=== PATIENT | female | born 1955 | race Caucasian/White ===

== ENCOUNTER → 2016-09-30 16:19 | Outpatient (CLI) | payer BC ==
[2012-07-20 10:40] VITALS: BMI 36.1
== END | disposition home or self-care (01) ==
LOC: D.MAMMO 08:30
DX: Z12.31 Encounter for screening mammogram for malignant neoplasm of breast (principal)

== ENCOUNTER 2017-02-05 15:46 | Emergency (ER) | payer BC ==
[2012-07-20 10:40] VITALS: BMI 36.1
== END 2017-02-05 18:42 | disposition home or self-care (01) ==
LOC: D.ER 15:46
DX: S70.01XA Contusion of right hip, initial encounter (principal); W01.0XXA Fall on same level from slipping, tripping and stumbling without subsequent striking against object, initial encounter; Y93.89 Activity, other specified; Y92.019 Unspecified place in single-family (private) house as the place of occurrence of the external cause; F17.200 Nicotine dependence, unspecified, uncomplicated

== ENCOUNTER 2017-02-14 08:35 | Emergency (ER) | payer BC ==
[2012-07-20 10:40] VITALS: BMI 36.1
== END 2017-02-14 10:35 | disposition home or self-care (01) ==
LOC: D.ER 08:35
DX: S90.122A Contusion of left lesser toe(s) without damage to nail, initial encounter (principal); W22.8XXA Striking against or struck by other objects, initial encounter; Y93.89 Activity, other specified; Y92.019 Unspecified place in single-family (private) house as the place of occurrence of the external cause; F17.200 Nicotine dependence, unspecified, uncomplicated

== ENCOUNTER → 2017-05-17 09:31 | Outpatient (CLI) | payer BC ==
[2012-07-20 10:40] VITALS: BMI 36.1
[~2017-05-17 09:31] MED LIST: ASPIRIN EC81 M1 PO; CENTRUM SILVER1 EAC3 PO; DURICEF500 MG PO; PERCOCET 5-3251 TAB PO
[2017-05-19 08:35] VITALS: BMI 32.3
== END | disposition home or self-care (01) ==
LOC: D.MRI 09:30
DX: M25.561 Pain in right knee (principal)

== ENCOUNTER 2017-05-19 07:21 | Day surgery (SDC) | payer BC ==
[~2017-05-19] VITALS: Ht 162.6 cm; Wt 85.3 kg
[~2017-05-19 07:21] MED LIST changes: -CENTRUM SILVER1 EAC3 PO; -DURICEF500 MG PO; -PERCOCET 5-3251 TAB PO
[2017-05-19 08:24] LABS: HEMATOCRIT 40.9 % (36.0-48.0); HEMOGLOBIN 13.8 g/dL (12-16); MCH 33.6 pg (26.0-34.0); MCHC 33.7 g/dL (31.0-37.0); MCV 99.5 fL (80.0-100.0); MEAN PLATELET VOLUME 9.9 fL (7.4-10.4); RBC 4.11 10x6/uL (4.00-5.40); RDW 13.9 % (11.5-14.5); WBC 5.4 10x3/uL (4.8-10.8)
[2017-05-19 08:35] VITALS: BP 147/73; Ht 162.6 cm; Wt 85.3 kg
[2017-05-19] MEDS ORDERED: CENTRUM SILVER1 EAC3 PO (09:02)
[2017-05-19] MEDS ORDERED: DURICEF500 MG PO (14:12)
[2017-05-19] MEDS ORDERED: PERCOCET 5-3251 TAB PO (14:12)
--- NOTE | 2017-05-19 15:10 | NUR ---
FULL LIQUID TRAY PROVIDED W/COFFEE
--- NOTE | 2017-05-19 16:05 | NUR ---
DC TEACHING COMPLETE PT DRESSED W/HUSBANDS ASSIT PT INTO WC ESCORTED OUT BY TIMMY LAND RN WITH DRIVING.
--- NOTE | 2017-05-19 16:05 | NUR ---
PIV DC W/CATHETER TIP INTACT TIN WELL
--- NOTE | 2017-05-22 08:58 | OP ---
PATIENT NAME: LES GREEN MEDICAL RECORD: [id number] :55 LOCATION:[facility] ADMISSION DATE: SURGEON: PABLITO LOCKETT DO DATE OF OPERATION: 05/19/2017 PROCEDURES PERFORMED: Right knee arthroscopy with partial lateral meniscectomy in the lateral side of a quad tendon repair. PREOPERATIVE DIAGNOSES: Right knee pain with an extensor lag as well as a right lateral meniscal tear. INDICATIONS: Ms. Green is a 61-year-old female that had an MRI prior and had some knee pain until a few weeks ago when she suffered an injury where she had a slip and fell backwards on to her leg. She did have a lot of knee pain at that time; however, with activities of life and she continued to walk on her knee and use it. She did some exercise and continued to have recurrent knee pain with weightbearing and with bending her knee at the superior and lateral side of her patella until she got to the point where she could not extend fully without any pain. She was seen in the office and seemed she could perform a straight leg raise; however, when attempting to do it, her knee would flex approximately 20 degrees and she had a tearing pain at the superior lateral portion of her patella, this is where she points to. MRI was done and seemed that she had a lateral meniscal tear; however, a quad tendon tear was not seen. At the patient's behest and due to the fact that we are going to trim out her lateral meniscus. We told her that we would possibly fix her quad tendon if we saw that it was torn. She consented to this in the office and she was set up for surgery today. SURGEON: Pablito Lockett DO. ASSISTED BY: PANKAJ Leger. DESCRIPTION OF PROCEDURE: The patient was taken to the operative suite, placed in supine position and she was given general anesthetic and 2 g of Ancef. A timeout was performed indicating the correct procedure, site, side and patient. The lateral and medial portals were injected with 0.25% Marcaine with epinephrine, 7 mL total between the 2. An 11-blade scalpel was used to enter the lateral portal and the knee was entered. 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 The medial gutter was then viewed and no fragments were seen. The medial compartment was inspected. A medial portal was established and medial meniscus was probed, did not seem to have any tears or instability. The ACL was then probed, did not seem to have any instability issues either, it is very stable. The lateral compartment was then entered and seemed to have a meniscal tear in the posterior horn of the lateral meniscus and that was put out with a straight biter and a shaver. The lateral gutter was then viewed as well and no loose bodies were seen there. We then re-entered the suprapatellar pouch and found the lateral side of the patella. There was no retinaculum connecting the patella to the quad compared to the medial side and decision was made to open. At that time, the scope was withdrawn and opened the incision in the mid patella anteriorly and careful dissection was made down to the quad tendon itself, which was seen to be very thin compared to the medial side and easily probed through. This was done and the tear was completed the tendon that had been torn, was excised and a FiberTape suture was used to make a Krackow stitch in the torn portion of the tendon up the medial side first and across and lateral side down, OPERATIVE REPORT [id number] LES GREEN leaving 2 tails out in the middle of the tear. The patella was then cleared off just above the contral surface. First, a drill then a tap was used to make a aerial applicator pilot hole for the PushLock anchor. The 2 limbs of the FiberTape were then pushed and put into the PushLock and the PushLock was put into the patella and then cinched down. The tendon was advanced very nicely and the suture tails of the FiberTape were cut. The additional sutures were used then to oversew the remainder of the quad tendon over the patella on that lateral side and then the defect as well was oversewn with that suture Then, the synovium over the knee was closed with 0 Vicryl and the skin with 2-0 Vicryl in inverted interrupted fashion and the skin was closed with ZipLine. The portal sites for the knee scope were closed with simple interrupted sutures. Steri-Strips were placed over the portals. Adaptic, 4 x 4s, ABD, Webril, Canelo wrap and then MARJORIE hose were placed up to the knee. The patient was placed in a knee immobilizer in extension, was awakened in a stable condition and taken to recovery room. Blood loss was minimal. TRANSINT:[id number] Voice Confirmation ID: [id number] DOCUMENT ID: [id number] PABLITO LOCKETT DO at 0858 CC: [id number] DICTATION DATE: 05/19/17 142 [employer] CLERK: 05/19/17 1826 [facility] 05/19/17 [facility] [address] [place] [id number]
== END 2017-05-19 16:05 | disposition home or self-care (01) ==
LOC: D.OPS 07:21 → D.PAN 08:30 → D.OPS 08:30
PROVIDERS: Anesthesiology
DX: S83.281A Other tear of lateral meniscus, current injury, right knee, initial encounter (principal); M25.561 Pain in right knee; F17.200 Nicotine dependence, unspecified, uncomplicated; Z01.812 Encounter for preprocedural laboratory examination

== ENCOUNTER 2017-07-02 16:58 | Emergency (ER) | payer BC ==
[2017-05-19 08:35] VITALS: BMI 32.3
[~2017-07-02 16:58] MED LIST changes: +CENTRUM SILVER1 EAC3 PO; +DURICEF500 MG PO; +PERCOCET 5-3251 TAB PO
== END 2017-07-02 19:14 | disposition home or self-care (01) ==
LOC: D.ER 16:58
DX: M25.461 Effusion, right knee (principal); S83.91XA Sprain of unspecified site of right knee, initial encounter; X58.XXXA Exposure to other specified factors, initial encounter; Y93.B9 Activity, other involving muscle strengthening exercises; Y92.029 Unspecified place in mobile home as the place of occurrence of the external cause; F17.200 Nicotine dependence, unspecified, uncomplicated

== ENCOUNTER → 2017-09-08 07:56 | Outpatient (CLI) | payer BC ==
[2017-05-19 08:35] VITALS: BMI 32.3
== END | disposition home or self-care (01) ==
LOC: D.OPS 07:56 → D.RAD 09:00
DX: M16.11 Unilateral primary osteoarthritis, right hip (principal)

== ENCOUNTER → 2017-10-24 17:29 | Outpatient (CLI) | payer BC ==
[2017-05-19 08:35] VITALS: BMI 32.3
== END | disposition home or self-care (01) ==
LOC: D.MAMMO 13:45
DX: Z12.31 Encounter for screening mammogram for malignant neoplasm of breast (principal)

== ENCOUNTER → 2017-10-27 10:18 | Outpatient (CLI) | payer BC ==
[2017-05-19 08:35] VITALS: BMI 32.3
== END | disposition home or self-care (01) ==
LOC: D.OPS 10:18 → D.SP 11:00 → D.OPS 11:00
DX: M16.11 Unilateral primary osteoarthritis, right hip (principal); Z01.812 Encounter for preprocedural laboratory examination

== ENCOUNTER 2017-10-30 09:02 | Outpatient (CLI) | payer BC ==
[2017-05-19 08:35] VITALS: BMI 32.3
--- NOTE | ~2017-10-30 | HEMODYNAMI ---
PATIENT:LES BRAGG MEDICAL RECORD: [id number] : 55 [id number] AD[facility]ION DATE: 10/30/17 Generatedon:10/30/201716:52 Patient name: LES BRAGG Patient #: [id number] SSN: : 1955 Date of study: 10/30/2017 Page: Of Hemodynamic Procedure Report Patient Data Patient Demographics Procedure consent was obtained First Name: LES Gender: Female Last Name: MAHSA : 1955 [facility] Initial: BRISA Age: 61 year(s) Patient #: [id number] Race: Unknown Additional ID: [id number] Contact details Address: [address] [place] [address] State: [place] City: [facility] Zip code: [address] Past Medical History Allergies Allergen Reaction Date Comments Reported Other allergy 10/30/2017 PCN, IODINE, DARVON,DEMEROL, CODEINE,SULFA, ZPAK Admission Admission Data Admission Date: 10/30/2017 Admission Time: 9:02 Lab Results Lab Result Date: 10/30/2017 Lab Result Time: 0:00 Biochemistry Name Units Result Min Max BUN mg/dl 14 --(--*-)-- 7 18 Creatinine mg/dl 0.9 --(-*--)-- 0.6 1.3 CBC Name Units Result Min Max Hemoglobin g/dl 13.6 --(*---)-- 13.5 17.5 Procedure Procedure Types Cath Procedure Diagnostic Procedure LHC LHC w/Coronaries Procedure Description Procedure Date Procedure Date: 10/30/2017 Procedure Start Time: 16:42 Procedure End Time: 16:51 Procedure Staff Name Function Emi Crowe RT Scrub Chele Lara RN Program Project Analyst Jo-Ann Cervantes RT Monitor Mary Workman RN Nurse Malvin Hong MD Performing Physician Procedure Data Cath Procedure Fluoroscopy Diagnostic fluoroscopy Total fluoroscopy Time: 1 time: 1 min min Diagnostic fluoroscopy Total fluoroscopy dose: 227 dose: 227 mGy mGy Contrast Material Contrast Material Type Amount (ml) Isovue 300 38 Entry Location Entry Primary Successful Side Size Upsize Upsize Entry Closure Davis ccessful Closure Location (Fr) 1 (Fr) 2 (Fr) Remarks Device Remarks Radial Right 6 Fr Mechanical artery Short Compression Estimated blood loss: 5 ml Diagnostic catheters Device Type Used For End Catheter Placement DIAGNOSTIC [place] 110cm 5 Procedure Fr catheter ([id number]) Procedure Complications No complications Procedure Medications Medication Administration Route Dosage 0.9% NaCl I.V. 100 ml/hr Oxygen NC 2 l/min Heparin Flush Bag added to field 2 bags (1000units/500ml NS) Lidocaine 2% added to field 20 Radial Cocktail added to field 1 syringe (Verapomil 2mg/Nitro 400mcg/Heparin 1500units) Versed I.V. 2 mg Fentanyl I.V. 100 mcg Versed I.V. 2 mg Fentanyl I.V. 100 mcg Radial Cocktail I.A. 1 syringe (Verapomil 2mg/Nitro 400mcg/Heparin 1500units) Hemodynamics Rest Heart Rate: 0 (bpm) Snapshots Pre Cath Intra NCS Post Cath Vital Signs Time Heart Resp SPO2 etCO2 NIBP (mmHg) Rhythm Pain Sedation Rate (ipm) (%) (mmHg) Status Level (bpm) 16:29:56 59 14 93 33.3 143/76(127) NSR 0 (11) 10(A) , No pain 16:34:16 56 13 94 38.6 154/74(103) NSR 0 (11) 10(A) , No pain 16:44:28 62 14 92 0 129/64(92) NSR 0 (11) 9(A) , No pain 16:49:48 64 15 95 0 138/60(98) NSR 0 (11) 10(A) , No pain Medications Time Medication Route Dose Verified Delivered Reason Notes Effectiveness by by 16:29:26 0.9% NaCl I.V. 100 Kp Kp Per ml/hr Sahil Baxter physician RN 16:29:38 Oxygen NC 2 l/min Kp Kp Per Sahil Baxter physician RN 16:30:12 Heparin Flush added 2 bags Kp Kp used for Bag to Sahil Baxter procedure (1000units/500ml field RN NS) 16:30:29 Lidocaine 2% added 20ml Kp Kp for local to vial Lorigan Lorigan anesthetic field RN 16:34:39 Radial Cocktail added 1 Kp Kp used for (Verapomil to syringe Lorigan Lorigan procedure 2mg/Nitro field RN 400mcg/Heparin 1500units) 16:37:34 Versed I.V. 2 mg Kp Kp for sedation Loredwige Baxter RN 16:37:42 Fentanyl I.V. 100 mcg Kp Kp for sedation Loredwige Baxter RN 16:40:11 Versed I.V. 2 mg Kp Kp for sedation Sahil Baxter RN 16:40:17 Fentanyl I.V. 100 mcg Kp Kp for sedation Loredwige Baxter RN 16:45:45 Radial Cocktail I.A. 1 Kp Malvin for (Verapomil syringe Sahil Adamth MD vasodilation 2mg/Nitro RN 400mcg/Heparin 1500units) Procedure Log Time Note 16:08:30 Chele Lara RN sent for patient. Start room use. 16:08:31 Time tracking: Regular hours 16:08:35 Plan of Care:Hemodynamics will remain stable., Cardiac rhythm will remain stable., Comfort level will be maintained., Respiratory function will remain adequate., Patient/ family verbilizes understanding of procedure., Procedure tolerated without complication., Recovers from procedure without complications.. 16:08:38 Signed procedure consent form obtained from patient. 16:10:01 Lab Result : Hemoglobin 13.6 g/dl 16:10:01 Lab Result : Creatinine 0.9 mg/dl 16:10:01 Lab Result : BUN 14 mg/dl 16:28:41 Patient received from ED to CCL 2 Alert and oriented. Tansferred to table in Supine position. 16:28:42 Warm blankets applied, and jennifer hugger turned on for patient comfort. 16:28:43 Correct patient and procedure confirmed by team. 16::44 ECG and BP/O2 sat monitors applied to patient. 16::44 Vital chart was started 16:28:46 Baseline sample Acquired. 16:28:56 Baseline sample Acquired. 16:29:01 Baseline sample Acquired. 16:29:03 Baseline sample Acquired. 16:29:10 Rhythm: sinus rhythm 16:29:11 Full Disclosure recording started 16:29:22 H&P Date Dictated: 10/30/2017 ER History on chart.. 16:29:23 Pre-procedure instructions explained to patient. 16:29:23 Pre-op teaching completed and patient verbalized understanding. 16:29:26 0.9% NaCl 100 ml/hr I.V. was administered by Kp Baxter ; Per physician; 16:29:27 Family in waiting room. 16:29:34 Patient NPO since Lunch. 16:29:38 Oxygen 2 l/min NC was administered by Kp Baxter ; Per physician; 16:30:12 Heparin Flush Bag (1000units/500ml NS) 2 bags added to field was administered by Kp Baxter ; used for procedure; 16:30:29 Lidocaine 2% 20ml vial added to field was administered by Kp Baxter ; for local anesthetic; 16:31:33 Patient allergic to Other allergyPCN, IODINE, DARVON,DEMEROL, CODEINE,SULFA, ZPAK 16:31:37 Is the patient allergic to Iodine/contrast media? Yes. 16:31:39 Was the patient premedicated? Yes 16:32:31 Zero performed for pressure channel P1 16:32:37 Patient diabetic? No. 16:32:44 Patient not . Patient is over age 55. 16:32:47 Previous problem with sedation/anesthesia? No ? 16:32:48 Snore? Yes 16:32:49 Sleep apnea? No 16:32:49 Deviated septum? No 16:32:50 Opens mouth fully? Yes 16:32:51 Sticks out tongue? Yes 16:32:53 Airway obstruction? No ? 16:32:57 Dentures? No ? 16:33:00 Modified Trey's test Ulnar < 7 seconds 16:33:03 Patient pain scale 1/10 ?. 16:33:09 IV patent on arrival in right forearm with 0.9% NaCl at [facility]. 16:33:12 Lab results completed and on chart. 16:33:15 Right Radial & Right Groin area was prepped with chlora-prep and draped in sterile fashion 16:33:17 Alarms reviewed by R. N. 16:33:17 Sharps counted by scrub and verified by R.N. 16:33:42 Lab Result : BUN 14 mg/dl 16:33:42 Lab Result : Creatinine 0.9 mg/dl 16:33:42 Lab Result : Hemoglobin 13.6 g/dl 16:34:28 Use device set Radial Dx or PCI 16:34:29 ACIST Syringe (17411) opened to sterile field. 16:34:30 ACIST Hand Control (75366) opened to sterile field. 16:34:31 ACIST Manifold (94036) opened to sterile field. 16:34:31 Tegaderm 4 x 4 (1626W) opened to sterile field. 16:34:33 Medline Cath Pack ([id number]) opened to sterile field. 16:34:35 Bag Decanter (2002S) opened to sterile field. 16:34:37 SHEATH 6FR Slender ([id number]) opened to sterile field. 16:34:37 DIAGNOSTIC WIRE .035 260cm J wire (274339) opened to sterile field. 16:34:38 MBrace Wrist Support ([id number]) opened to sterile field. 16:34:39 Radial Cocktail (Verapomil 2mg/Nitro 400mcg/Heparin 1500units) 1 syringe added to field was administered by Kp Baxter ; used for procedure; 16:37:11 --------ALL STOP TIME OUT------ 16:37:12 Final Timeout: patient, procedure, and site verified with staff and physician. All members of the team are in agreement. 16:37:14 Right Radial & Right Groin site verified by team. 16:37:20 Physical assessment completed. ASA score P 2 - A patient with mild systemic disease as per Malvin Hong MD. 16:37:24 Sedation plan: IV Moderate Sedation Medication:Versed, Fentanyl 16:37:34 Versed 2 mg I.V. was administered by Kp Baxter ; for sedation; 16:37:42 Fentanyl 100 mcg I.V. was administered by Kp Baxter ; for sedation; 16:40:11 Versed 2 mg I.V. was administered by Kp Baxter ; for sedation; 16:40:17 Fentanyl 100 mcg I.V. was administered by Kp Baxter ; for sedation; 16:42:20 Procedure started. 16:42:40 Local anesthetic to right femoral artery with Lidocaine 2% by Malvin Hong MD.INITIAL ACCESS ONLY 16:43:51 A 6 Fr Short sheath was inserted into the Right Radial artery 16:44:28 A DIAGNOSTIC [place] 110cm 5 Fr catheter ([id number]) was advanced over the wire and used for Procedure. 16:44:46 LV gram done using LIRA 16:44:50 Injector settings: Ml/sec: 5, Volume: 15, 16:45:13 EF : 60 % 16:45:31 RCA angiography performed. 16:45:45 Radial Cocktail (Verapomil 2mg/Nitro 400mcg/Heparin 1500units) 1 syringe I.A. was administered by Malvin Hnog MD; for vasodilation; 16:46:04 LCA angiography performed. 16:46:18 Catheter removed. 16:46:33 TR BAND Standard ([id number]) opened to sterile field. 16:48:14 Sheath removed intact; hemostasis achieved with Mechanical Compression to the Right Radial artery. 16:48:16 Procedure ended.(Physican Out) 16:48:19 Fluoroscopy time 01.00 minutes. 16:48:22 Flurop Dose total: 227 16:48:22 Fluoroscopy dose: 227 mGy 16:48:26 Contrast amount:Isovue 300 38ml. 16:48:29 TR band inflated with 10cc of air. 16:48:35 Post-procedure physical assessment completed. ASA score P 2 - A patient with mild systemic disease as per Malvin Hong MD. 16:48:37 Post procedure rhythm: unchanged. 16:48:41 Estimated blood loss: 5 ml 16:48:43 Post procedure instruction explained to patient.Patient verbalizes understanding. 16:48:43 Patient needs reinforcement of post procedure teaching. 16:49:26 Procedure and supply charges have been captured, reviewed, submitted and are correct. 16:49:28 Procedure Complication : No complications 16:51:11 Vital chart was stopped 16:51:12 See physician's report for complete and final results. 16:51:15 Report given to Pre/Post Procedure Room. 16:51:21 Patient transfered to Pre/Post Procedure Room with Bed. 16:51:24 Procedure ended. 16:51:24 Full Disclosure recording stopped 16:51:31 End room use (Document Last) Device Usage Item Name Manufacture Quantity Catalog Hospital Part Current Minima l Lot# / Number Charge Number Stock Stock Serial# Code ACIST Acist 1 60450 685124 458052 138318 20 Syringe WebLink International (64587) Integrity [employer] Inc ACIST Hand Acist 1 70624 537311 540275 419287 5 Control Medical (47714) Systems Inc ACIST Acist 1 37260 981502 038630 609349 5 Manifold Medical (14610) Systems Inc Tegaderm 4 x 3M 1 1626W 654843 206850 907963 5 4 (1626W) Medline Cath Cardinal 1 [id number] 281535 13662 178294 5 Pack Health ([id number]) Bag Decanter Microtek 1 2001S 724340 06902 155319 5 (2001S) Medical Inc. SHEATH 6FR Terumo 1 [id number] 760358 229570 413335 40 Slender ([id number]) DIAGNOSTIC [facility] [place] 1 961675 435866 312661 424346 30 WIRE .035 260cm J wire (909259) MBrace Wrist Advanced 1 140-0250-00 599962 13954 661797 5 Support Vascular ([id number]) Dynamics DIAGNOSTIC Terumo 1 40-2883 341924 176956 808480 5 [place] 110cm 5 Fr catheter (445140) TR BAND Terumo 1 [id number] 884906 342275 026476 40 Standard ([id number]) Signature Audit [place] Stage Time Signature Unsigned Intra-Procedure 10/30/2017 Jo-Ann Cervantes 4:52:18 PM RT(R) Signatures Monitor : Jo-Ann Cervantes Signature : RT Date : Time : [facility] [address] [place] [address]
--- NOTE | ~2017-10-30 | CN ---
PATIENT NAME:LES BRAGG MEDICAL RECORD: [id number] : 55 LOCATION:[facility] ADMIT DATE: ACCOUNT: [id number] CONSULTING PHYSICIAN: LESTER NAVARRO MD REFERRING PHYSICIAN: DARRIN NI MD DATE OF CONSULTATION: 10/30/2017 CARDIOLOGY CONSULT DIAGNOSES: 1. Chest pain compatible with angina. 2. Smoking history. 3. Obesity. 4. Family history of coronary artery disease. Ms. Bragg presents with greater than one hour of classic anginal chest discomfort, like Cyrus Felipe sitting on her chest. Her EKG is with nonspecific ST-T abnormalities. Troponin is normal. Initially, the chest pain resolved. She has had recurrence of the chest pain now at a minor level. REVIEW OF SYSTEMS: The patient reports easy bruising but reports no swollen glands. The patient reports no fever, no night sweats, no significant weight gain, no significant weight loss. No significant exercise tolerance. The patient reports no dry eyes, no irritation, no vision change. Patient reports no difficulty hearing and no ear pain. Patient reports no frequent nose bleeds or nose and sinus problems. Patient reports on arm pain on exertion. No shortness of breath while lying down. No history of heart murmur. Patient reports no cough, no wheezing or coughing up blood. Patient reports no abdominal pain, no vomiting. Normal appetite. No diarrhea and not vomiting blood. No nausea and no constipation. Patient reports no incontinence. No difficulty urinating. No hematuria. No increased frequency. Patient reports no muscle aches. No weakness, no arthralgias, no back pain. No swelling of the extremities. Patient reports no abnormal mole, no jaundice, no rashes. Reports no loss of consciousness. No weakness and no numbness. No seizures, dizziness, or headaches. The patient reports no depression, no sleep disturbance, feeling safe in a relationship and no alcohol abuse. Patient reports on fatigue. Reports no runny nose or sinus pressure. No itching, no hives, and no frequent sneezing. PHYSICAL EXAMINATION: GENERAL APPEARANCE: Well-nourished, well-developed, appears stated age. Level of distress, comfortable. PSYCHIATRIC: Mental status, alert, normal affect. Orientation, oriented to time, place and person. EYES: Lids and conjunctiva, noninjected. No discharge, no pallor. ENT: Lips, teeth, gums, normal dentition. Oropharynx, no cyanosis, no pallor. NECK: Carotid arteries, bilateral normal upstroke, no bruits, no thrills. JUGULAR VEINS: No jugular venous pressure or distention. CERVICAL LYMPH NODES: Nontender, nonenlarged. THYROID: Not enlarged. Nontender. No nodules. LUNGS: Respiratory effort, unlabored. CHEST: Normal curvature. No thoracic deformity. No chest wall tenderness. Percussion, resonant. Auscultation, clear. No wheezes, no rales, no rhonchi. CARDIOVASCULAR: Precordial exam, nondisplaced. No heaves or pericardial thrills. Rate and rhythm, regular. Heart sounds, normal S1, normal S2. No S3, CONSULT REPORT [id number] MINOR,ANA LILIA no gallop, no rub. Systolic murmur, not heard. Diastolic murmur, not heard. EXTREMITIES: No cyanosis, no edema. Peripheral pulses, full and equal in all extremities, except as noted. No bruits appreciated. ABDOMEN: Soft, nondistended. Normal aorta. No bruit. Nontender. No masses. Liver, nontender, no hepatomegaly. Spleen, nontender, no splenomegaly. MUSCULOSKELETAL: No joint tenderness. No joint swelling. No erythema. NEUROLOGICAL: Normal gait, normal strength, normal tone. SKIN: Warm and dry. OVERALL IMPRESSION: Chest pain compatible with angina. SHE IS ALLERGIC TO IODINE. We will premedicate with iodine. Proceed with coronary angiography. Further care depends upon findings of the angiography. TRANSINT:[id number] Voice Confirmation ID: [id number] DOCUMENT ID: [id number] LESTER NAVARRO MD CC: [id number] DICTATION DATE: 10/30/17 1242 STAINED GLASS JOINER: 10/30/17 1344 [facility] [address] [place] [address]
--- NOTE | ~2017-10-30 | OP ---
PATIENT NAME: LES BRAGG MEDICAL RECORD: [id number] :55 LOCATION:.[facility] ADMISSION DATE: SURGEON: LESTER NAVARRO MD DATE OF OPERATION: 10/30/2017 PROCEDURES: 1. Left heart catheterization. 2. Selective coronary angiography. 3. Left ventriculogram. INDICATION: Angina and coronary artery disease. PROCEDURE IN DETAIL: After informed consent was obtained and after detailed explanation of risks, benefits as well as alternative therapies, the patient elected to proceed with angiogram and angioplasty. The right radial area was prepped and draped in normal sterile fashion. The right radial artery was cannulated via modified Seldinger technique with placement of 6-Lao sheath. All catheters exchanged through this sheath. FINDINGS: Left ventriculogram was performed in standard 30-degree LIRA view, reveals good cardiac wall motion throughout all segments. Overall ejection fraction is estimated at 60%. SELECTIVE CORONARY ANGIOGRAPHY: Left main, left anterior descending, left circumflex, and right coronary artery are all smooth-walled vessels with no angiographic evidence of coronary artery disease. OVERALL IMPRESSION: 1. No angiographic evidence of coronary artery disease. 2. Normal left heart pressures. 3. Normal left ventricular systolic function. Chest pain is noncardiac in etiology. No further cardiac workup needs to be ascertained. TRANSINT:[id number] Voice Confirmation ID: [id number] DOCUMENT ID: [id number] LESTER NAVARRO MD CC: [id number] DICTATION DATE: 10/30/17 165 SUPERVISOR ADVICE: 10/30/172225 [facility] [address] [place] [address]
[2017-10-30 09:41] LABS: BASOPHILS 0.2 % (0-2); EOSINOPHILS 1.3 % (0-7); HEMATOCRIT 40.7 % (36.0-48.0); HEMOGLOBIN 13.6 g/dL (12-16); IMMATURE GRANULOCYTES 0.4 % (0-5); MCH 33.6 pg (26.0-34.0); MCHC 33.4 g/dL (31.0-37.0); MCV 100.5 fL (80.0-100.0); MEAN PLATELET VOLUME 9.8 fL (7.4-10.4); MONOCYTES 8.2 % (2-11); NEUTROPHILS 62.9 % (40-80); PLATELET COUNT 222 10x3/uL (130-400); RBC 4.05 10x6/uL (4.00-5.40); RDW 14.3 % (11.5-14.5); WBC 10.1 10x3/uL (4.8-10.8)
[2017-10-30 10:00] LABS: ALBUMIN 4.1 g/dL (3.4-5.0); ALKALINE PHOSPHATASE 102 U/L (46-116); ALT (SGPT) 24 U/L (10-68); BILIRUBIN - TOTAL 0.51 mg/dL (0.2-1.3); CALC OSMOLALITY 284 mosm/kg (275-300); CALCIUM 9.2 mg/dL (8.5-10.1); CARBON DIOXIDE 28.5 mmol/L (21.0-32.0); CHLORIDE - SERUM 106 mmol/L (98-107); CREATININE - SERUM 0.9 mg/dL (0.6-1.3); GLUCOSE 83 mg/dL (74-106); PROTEIN - SERUM 7.5 g/dL (6.4-8.2); SODIUM 143 mmol/L (136-145); UREA NITROGEN 14 mg/dL (7-18); eGFR NON AFRICAN AMERICAN 67 mL/min (90-120)
[2017-10-30 10:12] LABS: CHOLESTEROL, TOTAL 225 mg/dL (0-200); CKMB 1.2 U/L (0.0-3.6); CREATINE KINASE 45 UL (21-215); HDL CHOLESTEROL 74 mg/dL (32-96); LDL CHOLESTEROL 120 mg/dL (0-100); LDL-HDL RATIO 1.6 ratio (1.5-3.5); TRIGLYCERIDE 155 mg/dL (30-200)
[2017-10-30 10:13] LABS: TROPONIN-I < 0.017 ng/mL (0.000-0.060)
[2017-10-30 13:11] LABS: CKMB 0.9 U/L (0.0-3.6); CREATINE KINASE 43 UL (21-215)
[2017-10-30 13:18] LABS: TROPONIN-I < 0.017 ng/mL (0.000-0.060)
== END 2017-10-30 18:55 | disposition home or self-care (01) ==
LOC: D.OPS 09:02 → D.ER 09:02 → EDSTATUS 15:15 → D.OPS 18:55
PROVIDERS: Family Medicine
DX: R07.9 Chest pain, unspecified (principal); I10 Essential (primary) hypertension; F17.200 Nicotine dependence, unspecified, uncomplicated

== ENCOUNTER → 2018-03-06 07:45 | Outpatient (CLI) | payer BC ==
[2017-05-19 08:35] VITALS: BMI 32.3
== END | disposition home or self-care (01) ==
LOC: D.SP 07:45 → D.RAD 08:00 → D.OPS 08:00 → D.SP 08:00
DX: M25.551 Pain in right hip (principal)

== ENCOUNTER → 2018-03-09 09:21 | Outpatient (CLI) | payer BC ==
[2017-05-19 08:35] VITALS: BMI 32.3
== END | disposition home or self-care (01) ==
LOC: D.NM 09:21
DX: Z96.652 Presence of left artificial knee joint (principal)

== ENCOUNTER → 2018-06-21 13:51 | Outpatient (CLI) | payer BC ==
[2017-05-19 08:35] VITALS: BMI 32.3
[~2018-06-21 13:51] MED LIST changes: +BACTROBAN NASAL1 GM NASAL; +DILAUDID4 MG PO; +ELIQUIS2.5 MG PO; +FIBERCON625 MG PO; +KEFLEX500 MG PO; +VISTARIL50 MG PO
== END | disposition home or self-care (01) ==
LOC: D.LABREF 13:51
DX: M16.11 Unilateral primary osteoarthritis, right hip (principal); Z11.8 Encounter for screening for other infectious and parasitic diseases

== ENCOUNTER 2018-07-11 10:00 | Inpatient (IN) | payer BC ==
[~2018-07-11] VITALS: Ht 162.6 cm; Wt 90.7 kg
--- NOTE | ~2018-07-11 | OP ---
PATIENT NAME: LES GREEN MEDICAL RECORD: [id number] :55 LOCATION:D.[facility] ADMISSION DATE:07/17/18 SURGEON: PABLITO LOCKETT DO DATE OF OPERATION: 07/17/2018 PROCEDURE PERFORMED: Right total hip arthroplasty. PREOPERATIVE DIAGNOSIS: Severe osteoarthritis of the right hip. POSTOPERATIVE DIAGNOSIS: Severe osteoarthritis of the right hip. INDICATIONS: Ms. Green is a 62-year-old female who has had right hip pain and wear for quite sometime. She has dealt with it with medical marijuana she says and has tried to deal with the pain. She cannot ambulate well. Once she was to this point, she came to me and said she wanted her hip done. I informed her of risks and benefits of the procedure and the fact that it was so worn out, it would be somewhat difficult to do it. She is aware of risks of infection, bleeding, need for further surgery, fracture, and other complications such as DVT, PE, and even . She consented to the procedure. SURGEON: Pablito Lockett DO DESCRIPTION OF THE PROCEDURE: The patient was taken to the operative suite, laid in the supine position, given general anesthetic, and given a gram of vancomycin and 80 units of gentamicin preoperatively. A time-out was performed and everyone was in agreement with correct side, site, patient, and procedure. The right hip was then prepped and draped in a sterile fashion and the incision was began with tensor fascia mark of the right hip. A careful dissection was made down to the fascia of the tensor fascia mark and fascia was incised. Fascia was taken superiorly and muscle belly inferiorly or anteroposteriorly as well. In the interval with the rectus was encountered and opened. The ascending branch of the lateral femoral circumflex artery was tied off and then coagulated with Aquamantys and then the capsule was exposed and tomes were placed on either side of the femoral neck. Capsulotomy was performed, tagging the capsule. The neck cut was then made and the head could not be removed easily. After somewhat maneuvering, the head was removed and we began reaming. The bone was extremely soft as she had had cysts in the acetabulum. I ended up reaming to a 54, trying to put a 52 cup and it originally did not stick. I reamed to 53 and 54 cup would not stick; however, it did fit well into what we had reamed. The reamings were placed behind the cup and then 2 screws were placed into the posterior superior quadrant of the hip, 20 mm in length each. Then, the liner was placed. The femur was then exposed and I began broaching. I broached to a #7, trialed it, and seemed to fit well. Then, when we removed what we had trialed, and under x-ray, the 7 had gotten loose, an 8 broach was placed down to femur. This seemed to have very tight fit and I placed a #8 stem with a -3 neck and reduced the hip. This was a very nice fit and seemed to have good motion and very close if not exactly equal lengths to the other hip based on the AP x-ray. The wound was then thoroughly irrigated and capsule was closed with #2 Ethibond that had been tagged with. Vancomycin powder was placed deep in the wound and Surgicel powder was placed with that and then the fascia of the tensor fascia mark was closed with #1 Vicryl first in [id number] and then ran a running locking stitch on it. Then, 2-0 Vicryl was used to close the skin on top of the tensor fascia mark. Fascia was irrigated and more vancomycin was placed as well as Surgicel powder. The skin was then closed with 2-0 Vicryl in inverted interrupted fashion. Monocryl 4-0 was ran on skin and Sangeetha Dermabond OPERATIVE REPORT [id number] MINOR,ANA LILIA glue was placed on the skin. Telfa and Tegaderm were placed on the skin. The patient was awakened and taken to recovery in stable condition. BLOOD LOSS: Approximately 200 mL. COMPLICATIONS: None. TRANSINT:[id number] Voice Confirmation ID: [id number] DOCUMENT ID: [id number] PABLITO LOCKETT DO at 1521 CC: [id number] DICTATION DATE: 07/17/181849 LEAD SPRINKLER: 07/17/182007 ADM IN [facility] [address] [place] [address]
--- NOTE | ~2018-07-11 | MORECARE ---
CASE MANAGEMENT DISCHARGE SUMMARY PATIENT: LES BRAGG UNIT: [id number] ADM DATE: 07/17/18 AGE: 62 : 55 SEX: F ROOM/BED: D.2212 AUTHOR: ANDREW GALLO PHYSICIAN: REFERRING PHYSICIAN: KEILA LOCKETT DO DATE OF SERVICE: 07/24/18 Discharge Plan Patient Name: LES BRAGG Facility: [facility]:[place] : 1955 Planned Disposition: Home or Self Care Anticipated Discharge Date: Discharge Date: 07/20/2018 Expected LOS: 0 Initial Reviewer: [email or web address] Initial Review Date: 07/17/2018 Generated: 07/24/18 12:04 pm Comments DCP- Discharge Planning Updated by [email or web address]: Lila Last on 07/20/18 1:[address] patient being discharged. op pt set up and walker has been delivered to the room. CM to follow and assist with DC planning as needed DCP- Discharge Planning Updated by [email or web address]: Lila Last on 07/18/18 11:[address] Patient Name: LES BRAGG Admission Status: Elective Accout number: [id number] Admission Date: 07-17-2018 : 1955 Admission Diagnosis: Attending: KEILA LOCKETT Current LOS: 1 Anticipated DC Date: Planned Disposition: Home or Self Care Primary Insurance: [employer] OUT OF STATE Discharge Planning Comments: CM MET WITH PATIENT TO ASSESS DISCHARGE PLANNING NEEDS. SHE LIVES INDEPENDENTLY WITH HER AND PLANS TO RETURN THERE AT DISCHARGE. HER WILL BE THE ONE TO DRIVE HER HOME WHEN READY. SHE WILL HAVE A WALKER DELIVERED TO THE HOSPITAL. SHE WOULD LIKE TO DO HER PT AT [facility] OUT PATIENT, I WILL SET HER APPOINTMENT UP. PHYSICAL THERAPY SET UP FOR 07/23/18Monday AT 8:00AM, SPOKE WITH RIYA. CM WILL CONTINUE TO FOLLOW AND ASSIST WITH DC PLANNING NEEDED Water Tester: Lila Last DCPIA - Discharge Planning Initial Assessment Updated by [email or web address]: Lila Last on 07/18/18 11:32 am * Is the patient Alert and Oriented? Yes * How many steps to enter\exit or inside your home? 14 * PCP JOSE MIGUEL * Pharmacy [facility] * Preadmission Environment Home with Family * ADLs Independent * Equipment None * List name and contact numbers for known caregivers / representatives who currently or will assist patient after discharge: KEILA () [phone] * Verbal permission to speak to the caregivers and representatives has been obtained from the patient. Yes * Community resources currently utilized None * Additional services required to return to the preadmission environment? Yes * Can the patient safely return to the preadmission environment? Yes * Has this patient been hospitalized within the prior 30 days at any hospital? No Last DP export: 07/20/18 1:43 p Patient Name: MINOR, LES Page 66314 at 1104 All edits/amendments must be made on the electronic document DICTATION DATE: 07/24/181102 CLIENT SUPPORT PROFESSIONAL: MOHAMUD 07/24/181102 RPT#: [id number] DC DATE:07/20/18 STATUS: DIS IN [facility] [address] [place] [address] END OF REPORT
--- NOTE | ~2018-07-11 | MORECARE ---
CASE MANAGEMENT DISCHARGE SUMMARY PATIENT: LES BRAGG UNIT: [id number] ADM DATE: 07/17/18 AGE: 62 : 55 SEX: F ROOM/BED: D.2212 AUTHOR: SABINO,DOC PHYSICIAN: REFERRING PHYSICIAN: KEILA LOCKETT DO DATE OF SERVICE: 07/20/18 Discharge Plan Patient Name: LES BRAGG Facility: [facility]:[place] : 1955 Planned Disposition: Home or Self Care Anticipated Discharge Date: Discharge Date: Expected LOS: Initial Reviewer: [email or web address] Initial Review Date: 07/17/2018 Generated: 07/20/18 2:43 pm Comments DCP- Discharge Planning Updated by [email or web address]: Lila Last on 07/20/18 12:[address] patient being discharged. op pt set up and walker has been delivered to the room. CM to follow and assist with DC planning as needed DCP- Discharge Planning Updated by [email or web address]: Lila Last on 07/18/18 10:[address] Patient Name: LES BRAGG Admission Status: Elective Accout number: [id number] Admission Date: 07-17-2018 : 1955 Admission Diagnosis: Attending: KEILA LOCKETT Current LOS: 1 Anticipated DC Date: Planned Disposition: Home or Self Care Primary Insurance: [employer] OUT OF STATE Discharge Planning Comments: CM MET WITH PATIENT TO ASSESS DISCHARGE PLANNING NEEDS. SHE LIVES INDEPENDENTLY WITH HER AND PLANS TO RETURN THERE AT DISCHARGE. HER WILL BE THE ONE TO DRIVE HER HOME WHEN READY. SHE WILL HAVE A WALKER DELIVERED TO THE HOSPITAL. SHE WOULD LIKE TO DO HER PT AT [facility] OUT PATIENT, I WILL SET HER APPOINTMENT UP. PHYSICAL THERAPY SET UP FOR 07/23/18Monday AT 8:00AM, SPOKE WITH RIYA. CM WILL CONTINUE TO FOLLOW AND ASSIST WITH DC PLANNING NEEDED Wardrobe Coordinator: Lila Last DCPIA - Discharge Planning Initial Assessment Updated by [email or web address]: Lila Last on 07/18/18 11:32 am * Is the patient Alert and Oriented? Yes * How many steps to enter\exit or inside your home? 14 * PCP JOSE MIGUEL * Pharmacy [facility] * Preadmission Environment Home with Family * ADLs Independent * Equipment None * List name and contact numbers for known caregivers / representatives who currently or will assist patient after discharge: KEILA () [phone] * Verbal permission to speak to the caregivers and representatives has been obtained from the patient. Yes * Community resources currently utilized None * Additional services required to return to the preadmission environment? Yes * Can the patient safely return to the preadmission environment? Yes * Has this patient been hospitalized within the prior 30 days at any hospital? No Last DP export: 07/18/18 10:44 Patient Name: LES BRAGG Page 64126 at 1343 All edits/amendments must be made on the electronic document DICTATION DATE: 07/20/18 1342 AUTOMOTIVE HEAVY MECHANIC: MOHAMUD 07/20/18 1342 RPT#: [id number] DC DATE: STATUS: ADM IN [facility] [address] [place] [address] END OF REPORT
--- NOTE | ~2018-07-11 | MORECARE ---
CASE MANAGEMENT DISCHARGE SUMMARY PATIENT: LES BRAGG UNIT: [id number] ADM DATE: 07/17/18 AGE: 62 : 55 SEX: F ROOM/BED: D.2212 AUTHOR: ANDREW GALLO PHYSICIAN: REFERRING PHYSICIAN: KEILA LOCKETT DO DATE OF SERVICE: 07/18/18 Discharge Plan Patient Name: LES BRAGG Facility: [facility]:[place] : 1955 Planned Disposition: Home or Self Care Anticipated Discharge Date: Discharge Date: Expected LOS: Initial Reviewer: [email or web address] Initial Review Date: 07/17/2018 Generated: 07/18/18 12:44 pm Comments DCP- Discharge Planning Updated by [email or web address]: Lila Last on 07/18/18 10:[address] Patient Name: LES BRAGG Admission Status: Elective Accout number: [id number] Admission Date: 07-17-2018 : 1955 Admission Diagnosis: Attending: KEILA LOCKETT Current LOS: 1 Anticipated DC Date: Planned Disposition: Home or Self Care Primary Insurance: [employer] OUT OF STATE Discharge Planning Comments: CM MET WITH PATIENT TO ASSESS DISCHARGE PLANNING NEEDS. SHE LIVES INDEPENDENTLY WITH HER AND PLANS TO RETURN THERE AT DISCHARGE. HER WILL BE THE ONE TO DRIVE HER HOME WHEN READY. SHE WILL HAVE A WALKER DELIVERED TO THE HOSPITAL. SHE WOULD LIKE TO DO HER PT AT [facility] OUT PATIENT, I WILL SET HER APPOINTMENT UP. PHYSICAL THERAPY SET UP FOR 07/23/18Monday AT 8:00AM, SPOKE WITH RIYA. CM WILL CONTINUE TO FOLLOW AND ASSIST WITH DC PLANNING NEEDED Telephone Sterilizer: Lila Last DCPIA - Discharge Planning Initial Assessment Updated by [email or web address]: Lila Last on 07/18/18 11:32 am * Is the patient Alert and Oriented? Yes * How many steps to enter\exit or inside your home? 14 * PCP JOSE MIGUEL * Pharmacy [facility] * Preadmission Environment Home with Family * ADLs Independent * Equipment None * List name and contact numbers for known caregivers / representatives who currently or will assist patient after discharge: KEILA () [phone] * Verbal permission to speak to the caregivers and representatives has been obtained from the patient. Yes * Community resources currently utilized None * Additional services required to return to the preadmission environment? Yes * Can the patient safely return to the preadmission environment? Yes * Has this patient been hospitalized within the prior 30 days at any hospital? No Last DP export: 07/18/18 10:34 Patient Name: LES BRAGG Page 98884 at 1144 All edits/amendments must be made on the electronic document DICTATION DATE: 07/18/18 114 WEBSPHERE CONSULTANT: MOHAMUD 07/18/181142 RPT#: [id number] DC DATE: STATUS: ADM IN [facility] [address] [place] [address] END OF REPORT
--- NOTE | ~2018-07-11 | MORECARE ---
CASE MANAGEMENT DISCHARGE SUMMARY PATIENT: LES BRAGG UNIT: [id number] ADM DATE: 07/17/18 AGE: 62 : 55 SEX: F ROOM/BED: D.2212 AUTHOR: ANDREW GALLO PHYSICIAN: REFERRING PHYSICIAN: KEILA LOCKETT DO DATE OF SERVICE: 07/18/18 Discharge Plan Patient Name: LES BRAGG [facility] [facility] 1955 Planned Disposition: Home or Self Care Anticipated Discharge Date: Discharge Date: Expected LOS: Initial Reviewer: [email or web address] Initial Review Date: 07/17/2018 Generated: 07/18/18 12:34 pm DCPIA - Discharge Planning Initial Assessment Updated by [email or web address]: Lila Last on 07/18/18 11:32 am * Is the patient Alert and Oriented? Yes * How many steps to enter\exit or inside your home? 14 * PCP JOSE MIGUEL * Pharmacy [facility] * Preadmission Environment Home with Family * ADLs Independent * Equipment None * List name and contact numbers for known caregivers / representatives who currently or will assist patient after discharge: KEILA () [phone] * Verbal permission to speak to the caregivers and representatives has been obtained from the patient. Yes * Community resources currently utilized None * Additional services required to return to the preadmission environment? Yes * Can the patient safely return to the preadmission environment? Yes * Has this patient been hospitalized within the prior 30 days at any hospital? No Patient Name: LES BRAGG Page 15142 at 1134 All edits/amendments must be made on the electronic document DICTATION DATE: 07/18/18 1133 SMALL APPLIANCE ASSEMBLY SUPERVISOR: MOHAMUD 07/18/18 1133 RPT#: [id number] DC DATE: STATUS: ADM IN [facility] [address] [place] [address] END OF REPORT
[~2018-07-11 10:00] MED LIST changes: -BACTROBAN NASAL1 GM NASAL; -DILAUDID4 MG PO; -ELIQUIS2.5 MG PO; -KEFLEX500 MG PO; -VISTARIL50 MG PO
[2018-07-11 11:53] LABS: BASOPHILS 0.5 % (0-2); EOSINOPHILS 2.9 % (0-7); HEMATOCRIT 40.5 % (36.0-48.0); HEMOGLOBIN 13.8 g/dL (12-16); IMMATURE GRANULOCYTES 0.1 % (0-5); LYMPHOCYTES 33.9 % (15-50); MCHC 34.1 g/dL (31.0-37.0); MCV 99.8 fL (80.0-100.0); MEAN PLATELET VOLUME 9.9 fL (7.4-10.4); MONOCYTES 9.7 % (2-11); NEUTROPHILS 52.9 % (40-80); PLATELET COUNT 233 10x3/uL (130-400); RBC 4.06 10x6/uL (4.00-5.40); RDW 13.7 % (11.5-14.5); WBC 7.3 10x3/uL (4.8-10.8)
[2018-07-11 12:04] LABS: APTT 36.6 SECONDS (22.8-39.4); INR 1.05 (0.85-1.17); PROTIME 13.3 SECONDS (11.6-15.0)
[2018-07-11 12:10] LABS: ANION GAP 12.2 mmol/L (8-16); CALCIUM 9.2 mg/dL (8.5-10.1); CARBON DIOXIDE 28.6 mmol/L (21.0-32.0); CREATININE - SERUM 0.9 mg/dL (0.6-1.3); POTASSIUM - SERUM 3.8 mmol/L (3.5-5.1)
[2018-07-11 12:12] LABS: APPEARANCE HAZY (CLEAR); BILIRUBIN NEGATIVE (NEGATIVE); COLOR YELLOW (YELLOW); GLUCOSE NEGATIVE (NEGATIVE); KETONE NEGATIVE (NEGATIVE); NITRITE NEGATIVE (NEGATIVE); PROTEIN NEGATIVE (NEGATIVE); UROBILINOGEN NORMAL (NORMAL)
[2018-07-17] MEDS ORDERED: BACTROBAN NASAL1 GM NASAL (12:22)
[2018-07-17 12:31] VITALS: BP 144/70; BMI 34.4
[2018-07-17 19:50] VITALS: BP 146/75
[2018-07-17 20:49] VITALS: BP 146/75
[2018-07-17 23:03] VITALS: Ht 162.6 cm; Wt 90.7 kg
[2018-07-18 00:35] VITALS: BP 154/74
[2018-07-18 04:42] VITALS: BP 146/80
[2018-07-18 05:52] LABS: HEMATOCRIT 33.7 % (36.0-48.0); HEMOGLOBIN 11.3 g/dL (12-16); MCH 33.2 pg (26.0-34.0); MCHC 33.5 g/dL (31.0-37.0); MCV 99.1 fL (80.0-100.0); MEAN PLATELET VOLUME 10.2 fL (7.4-10.4); RBC 3.4 10x6/uL (4.00-5.40); RDW 13.5 % (11.5-14.5); WBC 11.4 10x3/uL (4.8-10.8)
[2018-07-18 08:33] VITALS: BP 116/53
[2018-07-18 12:45] VITALS: BP 123/48
[2018-07-18 22:16] VITALS: BP 110/38
[2018-07-19 04:58] VITALS: BP 115/41
[2018-07-19 06:01] LABS: HEMATOCRIT 32.4 % (36.0-48.0); HEMOGLOBIN 10.7 g/dL (12-16); MCH 33.1 pg (26.0-34.0); MCV 100.3 fL (80.0-100.0); MEAN PLATELET VOLUME 10.2 fL (7.4-10.4); RBC 3.23 10x6/uL (4.00-5.40); RDW 13.7 % (11.5-14.5)
[2018-07-19 06:36] LABS: WBC 8.5 10x3/uL (4.8-10.8)
[2018-07-19 16:33] VITALS: BP 122/57
[2018-07-19 21:26] VITALS: BP 113/43
[2018-07-20 05:11] VITALS: BP 119/48
[2018-07-20 08:23] VITALS: BP 121/47
[2018-07-20] MEDS ORDERED: ELIQUIS2.5 MG PO (12:12)
[2018-07-20] MEDS ORDERED: VISTARIL50 MG PO (12:12)
[2018-07-20] MEDS ORDERED: KEFLEX500 MG PO (12:13)
[2018-07-20] MEDS ORDERED: DILAUDID4 MG PO (12:14)
== END 2018-07-20 15:05 | disposition home or self-care (01) | DRG 470 ==
LOC: D.SDCHOLD 07-17 10:00 → D.MS 07-17 10:30 → D.SDCHOLD 07-17 10:30 → D.MS 07-17 19:22
PROVIDERS: Orthopaedic Surgery
PROC: 0SR90JZ Replacement of Right Hip Joint with Synthetic Substitute, Open Approach (ICD-10-PCS; principal; 2018-07-17 13:15)
DX: M16.11 Unilateral primary osteoarthritis, right hip (principal); F17.200 Nicotine dependence, unspecified, uncomplicated

== ENCOUNTER → 2018-08-30 11:50 | Outpatient (CLI) | payer BC ==
[~2018-08-30 11:50] MED LIST changes: +BACTROBAN NASAL1 GM NASAL; +DILAUDID4 MG PO; +ELIQUIS2.5 MG PO; +KEFLEX500 MG PO; +VISTARIL50 MG PO
[2018-08-30 18:17] LABS: BASOPHILS 0.7 % (0-2); EOSINOPHILS 2.9 % (0-7); HEMATOCRIT 40.2 % (36.0-48.0); HEMOGLOBIN 13.3 g/dL (12-16); IMMATURE GRANULOCYTES 0.1 % (0-5); LYMPHOCYTES 37.3 % (15-50); MCH 32.4 pg (26.0-34.0); MCHC 33.1 g/dL (31.0-37.0); MCV 97.8 fL (80.0-100.0); MEAN PLATELET VOLUME 11.2 fL (7.4-10.4); MONOCYTES 9.1 % (2-11); NEUTROPHILS 49.9 % (40-80); PLATELET COUNT 248 10x3/uL (130-400); RBC 4.11 10x6/uL (4.00-5.40); WBC 6.8 10x3/uL (4.8-10.8)
[2018-08-30 19:24] LABS: ERYTHROCYTE SEDIMENTATION RATE 45 mm/hr (0-30)
== END | disposition home or self-care (01) ==
LOC: D.LABREF 11:50
PROVIDERS: Orthopaedic Surgery
DX: M16.11 Unilateral primary osteoarthritis, right hip (principal); Z11.8 Encounter for screening for other infectious and parasitic diseases

== ENCOUNTER → 2018-09-06 11:01 | Outpatient (CLI) | payer BC ==
[~2018-09-06 11:01] MED LIST changes: +BAYER CHEWABLE81 MG PO; +XANAX1 MG PO
== END | disposition home or self-care (01) ==
LOC: D.CT 11:01
DX: M25.551 Pain in right hip (principal)

== ENCOUNTER 2018-09-12 11:10 | Inpatient (IN) | payer BC ==
[2018-09-07 10:24] LABS: BASOPHILS 0.6 % (0-2); EOSINOPHILS 2.7 % (0-7); HEMATOCRIT 41.1 % (36.0-48.0); HEMOGLOBIN 13.8 g/dL (12-16); IMMATURE GRANULOCYTES 0.3 % (0-5); LYMPHOCYTES 38.5 % (15-50); MCH 32.8 pg (26.0-34.0); MCHC 33.6 g/dL (31.0-37.0); MCV 97.6 fL (80.0-100.0); MONOCYTES 10.5 % (2-11); NEUTROPHILS 47.4 % (40-80); PLATELET COUNT 278 10x3/uL (130-400); RBC 4.21 10x6/uL (4.00-5.40)
[2018-09-07 10:26] LABS: APPEARANCE HAZY (CLEAR); BILIRUBIN NEGATIVE (NEGATIVE); COLOR YELLOW (YELLOW); GLUCOSE NEGATIVE (NEGATIVE); KETONE NEGATIVE (NEGATIVE); NITRITE NEGATIVE (NEGATIVE); PROTEIN NEGATIVE (NEGATIVE); UROBILINOGEN NORMAL (NORMAL)
[2018-09-07 10:34] LABS: CALC OSMOLALITY 283 mosm/kg (275-300); CALCIUM 9.5 mg/dL (8.5-10.1); CARBON DIOXIDE 29.6 mmol/L (21.0-32.0); CHLORIDE - SERUM 103 mmol/L (98-107); CREATININE - SERUM 0.7 mg/dL (0.6-1.3); GLUCOSE 89 mg/dL (74-106); POTASSIUM - SERUM 3.9 mmol/L (3.5-5.1); SODIUM 143 mmol/L (136-145); UREA NITROGEN 12 mg/dL (7-18); eGFR NON AFRICAN AMERICAN 90 mL/min (90-120)
[2018-09-07 10:37] LABS: APTT 34.3 SECONDS (22.8-39.4); INR 0.99 (0.85-1.17); PROTIME 12.6 SECONDS (11.6-15.0)
[~2018-09-12] VITALS: Ht 162.6 cm; Wt 77.3 kg
--- NOTE | ~2018-09-12 | MORECARE ---
CASE MANAGEMENT DISCHARGE SUMMARY PATIENT: LES BRAGG UNIT: [id number] ADM DATE: 09/12/18 AGE: 62 : 55 SEX: F ROOM/BED: D.2211 AUTHOR: ANDREW GALLO PHYSICIAN: REFERRING PHYSICIAN: KEILA LOCKETT DO DATE OF SERVICE: 09/14/18 Discharge Plan Patient Name: LES BRAGG Facility: [facility]:[place] : 1955 Planned Disposition: Home Anticipated Discharge Date: Discharge Date: Expected LOS: Initial Reviewer: [email or web address] Initial Review Date: 09/14/2018 Generated: 09/14/18 1:09 pm Comments DCP- Discharge Planning Updated by [email or web address]: Pastora Janett on 09/14/18 11:[address] Patient Name: LES BRAGG Admission Status: Elective Accout number: [id number] Admission Date: 09-12-2018 : 1955 Admission Diagnosis:MECH LOOSENING OF INTERNAL RIGHT HIP PROSTHETIC JOINT, Attending: KEILA LOCKETT Current LOS: 2 Anticipated DC Date: Planned Disposition: Home Primary Insurance: [employer] OUT OF STATE Discharge Planning Comments: CM MET WITH PATIENT ABOUT DC PLANNING/NEEDS. PATIENT STATES NO NEEDS, SHE HAS ALREADY GOT HER DME. STATES SHE HAS SET UP PT OUTPATIENT HERE AND IT WILL START MONDAY. 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 CM WILL FOLLOW AND ASSIST NEEDED WITH DC PLANNING/NEEDS. Roll Cutting Operator: Pastora Rowland DCPIA - Discharge Planning Initial Assessment Updated by [email or web address]: Pastora Rowland on 09/14/18 12:07 pm * Is the patient Alert and Oriented? Yes * PCP JOSE MIGUEL * Pharmacy [facility] * Preadmission Environment Home with Family * ADLs Independent * Equipment Bedside Commode Cane Shower Chair Walker Wound Vac * List name and contact numbers for known caregivers / representatives who currently or will assist patient after discharge: KEILA, , SON, * Community resources currently utilized None * Additional services required to return to the preadmission environment? No * Can the patient safely return to the preadmission environment? Yes * Has this patient been hospitalized within the prior 30 days at any hospital? No Patient Name: LES BRAGG Page 77717 at 1210 All edits/amendments must be made on the electronic document DICTATION DATE: 09/14/181208 ELECTROLYSIS INVESTIGATOR: MOHAMUD 09/14/181208 RPT#: [id number] DC DATE: STATUS: ADM IN [facility] [address] [place] [address] END OF REPORT
--- NOTE | ~2018-09-12 | OP ---
PATIENT NAME: LES GREEN MEDICAL RECORD: [id number] :55 LOCATION:D.[facility]11 ADMISSION DATE:09/12/18 SURGEON: PABLITO LOCKETT DO DATE OF OPERATION: 09/12/2018 PROCEDURE PERFORMED: Revision right total hip. 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 SURGEON: Pablito Lockett DO INDICATIONS: Ms. Green is a 62-year-old female who underwent right total hip approximately 6 weeks ago. She was doing okay for the first few weeks and then developed severe groin pain with internal rotation. This got worse and worse and to a point where she was unable to bear it and she asked me to investigate and do something. Lukas labs to make sure she was not infected. Her ESR was slightly elevated, but her CRP and white count were not. Also, got a CT scan, which demonstrated what appeared to be some loosening of the acetabular component of the cup. She also had signs of impingement and iliopsoas tendinitis. Once this was discussed with her, she begged me to do something surgically to see if there is something is entrapped or see what was wrong. I told her I thought the cup was probably loose and she was okay with doing a revision. Told her she would be at increased risk for infection due to the fact that the revision will be a longer surgery. She was okay with that, just tired of dealing with the pain, and also complications of fracture, need for further surgery, femoral nerve palsy, numbness in the anterolateral thigh, she was okay with those things and consented to the procedure. DESCRIPTION OF PROCEDURE: The patient was taken to the operative suite, laid in the supine position, given 1250 mg of vancomycin preoperatively due to her allergies. The right hip was then prepped and draped in the sterile fashion. Timeout was performed, everybody was agreement with the correct side, site, patient, and procedure. Once this was done, the incision began along the old incision at the inferior part. Due to the fact, we are probably just doing the acetabulum, the tensor fascia mark fascia was divided and the interval was encountered. The capsule was removed at that time in order to expose the acetabulum. Attempted hip dislocation was not possible and at that time, knocked the ball of the roughened neck of the femur. After that was done, we got the dual mobility out of the acetabulum and then the acetabulum was exposed, after further exposure, the liner of the acetabular cup was attempted to be removed and once it was impacted, the cup moved indicating that it was indeed loose and was likely the cause of the pain she was having. After quite some time of trying to get the liner out with the cup moving, we ended up taking the whole cup out with the screws in all, there were 2 screws that were in the cup. This all came out in 1 piece, noting that the femur had then become loosened due to being hit. The acetabular revision was done at that time. We reamed it to a 57 and a 58 cup was impacted into place under fluoroscopy. Then, 3 screws were placed in the posterior superior portion of all the 4 quadrants of the acetabulum into the pelvis. Three screws were placed and made flush with the cup and then these had OPERATIVE REPORT [id number] LES GREEN. A liner was then placed and then with somewhat difficulty, the stem was removed from the femur. We then broached to a #10 and #10 Taperloc high-offset stem was put in and then we trialed the -6 neck and this fit well. Close to equal leg lengths on the AP pelvis. After that, the actual implant was put in and the hip was reduced and x-rays were taken. Thorough irrigation was done at that time. A liter of irrigation was done and then 1 gram of vancomycin was placed in the wound. The tensor fascia mark was closed at that time with #1 Vicryl in a running stitch and the skin was closed with 2-0 Vicryl in inverted interrupted and 4-0 Monocryl ran on the skin and then a Prevena wound VAC was placed on the skin. ESTIMATED BLOOD LOSS: Blood loss was approximately 100 mL. COMPLICATIONS: None. TRANSINT:[id number] Voice Confirmation ID: [id number] DOCUMENT ID: [id number] PABLITO LOCKETT DO at 172 CC: [id number] DICTATION DATE: 09/12/182214 SALES MANAGER: 09/13/18 0109 [facility] [place] [address] [place] [address]
--- NOTE | ~2018-09-12 | MORECARE ---
CASE MANAGEMENT DISCHARGE SUMMARY PATIENT: LES BRAGG UNIT: [id number] ADM DATE: 09/12/18 AGE: 62 : 55 SEX: F ROOM/BED: D.2211 AUTHOR: ANDREW GALLO PHYSICIAN: REFERRING PHYSICIAN: KEILA LOCKETT DO DATE OF SERVICE: 09/17/18 Discharge Plan Patient Name: LES BRAGG Facility: [facility]:[place] : 1955 Planned Disposition: Home Anticipated Discharge Date: Discharge Date: 09/14/2018 Expected LOS: Initial Reviewer: [email or web address] Initial Review Date: 09/14/2018 Generated: 09/17/18 3:49 pm Comments DCP- Discharge Planning Updated by [email or web address]: Pastoraseema Rowland on 09/14/18 11:[address] Patient Name: LES BRAGG Admission Status: Elective Accout number: [id number] Admission Date: 09-12-2018 : 1955 Admission Diagnosis:MECH LOOSENING OF INTERNAL RIGHT HIP PROSTHETIC JOINT, Attending: KEILA LOCKETT Current LOS: 2 Anticipated DC Date: Planned Disposition: Home Primary Insurance: [employer] OUT OF STATE Discharge Planning Comments: CM MET WITH PATIENT ABOUT DC PLANNING/NEEDS. PATIENT STATES NO NEEDS, SHE HAS ALREADY GOT HER DME. STATES SHE HAS SET UP PT OUTPATIENT HERE AND IT WILL START MONDAY. 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 CM WILL FOLLOW AND ASSIST NEEDED WITH DC PLANNING/NEEDS. Relocation Commissioner: Pastora Rowland DCPIA - Discharge Planning Initial Assessment Updated by [email or web address]: Pastora Rowland on 09/14/18 12:07 pm * Is the patient Alert and Oriented? Yes * PCP JOSE MIGUEL * Pharmacy [facility] * Preadmission Environment Home with Family * ADLs Independent * Equipment Bedside Commode Cane Shower Chair Walker Wound Vac * List name and contact numbers for known caregivers / representatives who currently or will assist patient after discharge: KEILA, , SON, * Community resources currently utilized None * Additional services required to return to the preadmission environment? No * Can the patient safely return to the preadmission environment? Yes * Has this patient been hospitalized within the prior 30 days at any hospital? No Last DP export: 09/14/18 11:10 Patient Name: MINOR, LES Page 46000 at 1449 All edits/amendments must be made on the electronic document DICTATION DATE: 09/17/181448 EXPOSURE MACHINE OPERATOR: MOHAMUD 09/17/181448 RPT#: [id number] DC DATE:09/14/18 STATUS: DIS IN [facility] [address] [place] [address] END OF REPORT
[2018-09-12 13:39] VITALS: BP 140/63; BMI 29.2
[2018-09-13 02:47] VITALS: BP 121/75; BMI 29.2
[2018-09-13 04:54] LABS: HEMATOCRIT 33.5 % (36.0-48.0); HEMOGLOBIN 10.8 g/dL (12-16); MCHC 32.2 g/dL (31.0-37.0); MCV 99.1 fL (80.0-100.0); RBC 3.38 10x6/uL (4.00-5.40); RDW 14.5 % (11.5-14.5); WBC 11.9 10x3/uL (4.8-10.8)
[2018-09-13 05:10] VITALS: BP 102/62
[2018-09-13 08:48] VITALS: BP 100/47
[2018-09-13 12:45] VITALS: BP 122/60
[2018-09-13 16:50] VITALS: BP 128/55
[2018-09-13 18:32] VITALS: Ht 162.6 cm; Wt 77.3 kg
[2018-09-13 21:11] VITALS: BP 115/53
[2018-09-14 04:34] VITALS: BP 110/41
[2018-09-14 06:48] LABS: HEMATOCRIT 29.4 % (36.0-48.0); HEMOGLOBIN 9.3 g/dL (12-16); MCH 31.5 pg (26.0-34.0); MCHC 31.6 g/dL (31.0-37.0); MCV 99.7 fL (80.0-100.0); MEAN PLATELET VOLUME 10.3 fL (7.4-10.4); RBC 2.95 10x6/uL (4.00-5.40); RDW 14.8 % (11.5-14.5)
[2018-09-14 06:49] LABS: WBC 6.6 10x3/uL (4.8-10.8)
[2018-09-14 08:51] VITALS: BP 115/48
[2018-09-14] MEDS ORDERED: XANAX1 MG PO (11:12)
[2018-09-14] MEDS ORDERED: ULTRAM50 MG PO (11:13)
[2018-09-14] MEDS ORDERED: VISTARIL50 MG PO (11:14)
== END 2018-09-14 13:14 | disposition home or self-care (01) | DRG 468 ==
LOC: D.SDCHOLD 11:10 → D.MS 11:10 → D.SDCHOLD 13:45 → D.MS 22:09
PROVIDERS: Orthopaedic Surgery
PROC: 0SPA0JZ Removal of Synthetic Substitute from Right Hip Joint, Acetabular Surface, Open Approach (ICD-10-PCS; 2018-09-12)
PROC: 0SRA0JZ Replacement of Right Hip Joint, Acetabular Surface with Synthetic Substitute, Open Approach (ICD-10-PCS; principal; 2018-09-12 13:45)
DX: T84.030A Mechanical loosening of internal right hip prosthetic joint, initial encounter (principal)

== ENCOUNTER → 2018-10-16 16:36 | Outpatient (CLI) | payer BC ==
[2018-09-13 18:32] VITALS: BMI 29.2
[~2018-10-16 16:36] MED LIST changes: +ULTRAM50 MG PO
== END | disposition home or self-care (01) ==
LOC: D.MRI 10-12 16:30
DX: S83.206A Unspecified tear of unspecified meniscus, current injury, right knee, initial encounter (principal); X58.XXXA Exposure to other specified factors, initial encounter

== ENCOUNTER 2018-10-19 10:20 | Day surgery (SDC) | payer BC ==
[~2018-10-19] VITALS: Ht 162.6 cm; Wt 77.1 kg
[2018-10-19 12:02] LABS: HEMATOCRIT 35.8 % (36.0-48.0); HEMOGLOBIN 11.8 g/dL (12-16); MCH 32.4 pg (26.0-34.0); MCV 98.4 fL (80.0-100.0); MEAN PLATELET VOLUME 10.2 fL (7.4-10.4); RBC 3.64 10x6/uL (4.00-5.40); RDW 15.3 % (11.5-14.5)
[2018-10-19 12:52] VITALS: BP 121/49; Ht 162.6 cm; Wt 77.1 kg
[2018-10-19] MEDS ORDERED: XANAX1 MG PO (15:15)
--- NOTE | 2018-10-19 19:14 | OP ---
PATIENT NAME: LES GREEN MEDICAL RECORD: [id number] :55 LOCATION:DDejanOPS ADMISSION DATE: SURGEON: PABLITO LOCKETT DO DATE OF OPERATION: 10/19/2018 PROCEDURE PERFORMED: Right knee arthroscopy with partial lateral meniscectomy. PREOPERATIVE DIAGNOSIS: Right knee lateral meniscal tear. POSTOPERATIVE DIAGNOSIS: Right knee lateral meniscal tear. INDICATIONS: Ms. Green is a 62-year-old female who underwent revision of right total hip about 6 weeks ago. She was doing therapy and going up on a step, twisted her knee, and felt a pop in her knee. Since then, it is painful for her to bear weight on her right knee. She ended up getting an MRI, which indeed did show a lateral meniscal tear and she wanted something done about it. She was informed of risks and benefits of the procedure of right knee arthroscopy with partial lateral meniscectomy and signed the consent. She is aware of the risks of infection, bleeding, damage to nerves and vessels, and need for further surgery. She was okay with that and signed the consent. SURGEON: Pablito Lockett DO DESCRIPTION OF PROCEDURE: The patient was taken to the operative suite, laid in the supine position, and given 2 grams of Ancef preoperatively. The right lower extremity was prepped and draped in sterile fashion. An LMA was placed and sedated. Time-out was performed. Everyone was in agreement with correct site, side, patient, and procedure. The incision then began with the knee flexed and the lateral portal with a #11 blade scalpel. Trocar was then entered into the knee. The knee was inspected. Suprapatellar pouch was clean and no loose bodies seen, same was the lateral and medial gutters. The medial compartment was then entered with the knee flexed and the medial portal was established with an 18-gauge spinal needle and a #11 blade scalpel. The trocar was entered in. Probe was then entered in to probe the medial meniscus and it was inspected. No tears were seen of the medial meniscus. ACL was probed as well. No tear was seen in it. The probe was then parked in the notch and the leg was ckeeqb-wj-pmlu'ed, getting into the lateral compartment. There was minimal chondromalacia in the medial compartment. The lateral compartment was entered and the lateral meniscus was torn in several places. She had 2 horizontal tears in the midportion of the meniscus and then the posterior horn of the meniscus had also an intrasubstance tear. The biter was brought in through the medial portal and it was bit back to a stable face. Then, a shaver was brought in to clean it up. It was probed and seen to be in stable condition at that point. No other tears were seen. The knee was then brought to extension and the trochlea was inspected. 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 At that point, the water was turned off and suction was turned on. The knee was injected in the superolateral area of the knee and to the suprapatellar pouch with 40 mg of Kenalog and 4 cc of lidocaine. The portal sites were then closed with 3-0 Monocryl in inverted interrupted fashion. Steri-Strips, Adaptic, 4 x 4, Webril, and Canelo wrap were then placed on the knee. The patient was awakened and taken to recovery in stable condition. BLOOD LOSS: Minimal. COMPLICATIONS: None. OPERATIVE REPORT [id number] LES GREEN TRANSLESLI:[id number] Voice Confirmation ID: [id number] DOCUMENT ID: [id number] PABLITO LOCKETT DO at 1914 CC: [id number] DICTATION DATE: 10/19/18 1520 PLASMA SPECIALIST: 10/19/18 1826 [facility] [address] [place] [address]
== END 2018-10-19 17:15 | disposition home or self-care (01) ==
LOC: D.OPS 10:20 → D.PAN 14:00 → D.OPS 17:15
PROVIDERS: Anesthesiology
DX: S83.281A Other tear of lateral meniscus, current injury, right knee, initial encounter (principal); X50.1XXA Overexertion from prolonged static or awkward postures, initial encounter

== ENCOUNTER → 2018-10-26 20:12 | Outpatient (CLI) | payer BC ==
[2018-10-19 12:52] VITALS: BMI 29.2
== END | disposition home or self-care (01) ==
LOC: D.MAMMO 10-16 16:15
DX: Z12.31 Encounter for screening mammogram for malignant neoplasm of breast (principal)

== ENCOUNTER → 2019-01-09 09:46 | Outpatient (CLI) | payer BC ==
[2018-10-19 12:52] VITALS: BMI 29.2
== END | disposition home or self-care (01) ==
LOC: D.MRI 09:46
PROVIDERS: ATTEND Orthopaedic Surgery
DX: M25.522 Pain in left elbow (principal)

== ENCOUNTER → 2019-01-15 07:28 | Outpatient (CLI) | payer BC ==
[~2019-01-15 07:28] MED LIST changes: +LEVOFLOXACIN500 MG PO; +MEDROL DOSE PACK4 MG PO; +OMNICEF300 MG PO; +TORADOL10 MG PO
== END | disposition home or self-care (01) ==
LOC: D.MRI 07:28
DX: S63.418A Traumatic rupture of collateral ligament of other finger at metacarpophalangeal and interphalangeal joint, initial encounter (principal); X58.XXXA Exposure to other specified factors, initial encounter

== ENCOUNTER 2019-04-02 22:48 | Emergency (ER) | payer BC ==
[~2019-04-02] VITALS: Ht 162.6 cm; Wt 82.7 kg
[~2019-04-02 22:48] MED LIST changes: -LEVOFLOXACIN500 MG PO; -MEDROL DOSE PACK4 MG PO; -OMNICEF300 MG PO; -TORADOL10 MG PO
[2019-04-02 22:55] VITALS: Ht 162.6 cm; Wt 82.7 kg
[2019-04-02] MEDS ORDERED: TORADOL10 MG PO (23:18)
[2019-04-02] MEDS ORDERED: OMNICEF300 MG PO (23:18)
[2019-04-02 23:40] VITALS: BP 148/93
== END 2019-04-02 23:40 | disposition home or self-care (01) ==
LOC: D.ER 22:48
DX: H66.91 Otitis media, unspecified, right ear (principal); J01.90 Acute sinusitis, unspecified

== ENCOUNTER 2019-04-15 17:03 | Emergency (ER) | payer BC ==
[2019-04-02 22:55] VITALS: Ht 162.6 cm; Wt 75.0 kg
[~2019-04-15] VITALS: Ht 162.6 cm; Wt 75.0 kg
[~2019-04-15 17:03] MED LIST changes: +OMNICEF300 MG PO; +TORADOL10 MG PO
[2019-04-15] MEDS ORDERED: LEVOFLOXACIN500 MG PO (18:42)
[2019-04-15] MEDS ORDERED: MEDROL DOSE PACK4 MG PO (18:42)
[2019-04-15 19:31] VITALS: BP 148/71
== END 2019-04-15 19:34 | disposition home or self-care (01) ==
LOC: D.ER 17:03
DX: H66.91 Otitis media, unspecified, right ear (principal)

== ENCOUNTER 2019-06-23 08:11 | Emergency (ER) | payer BC ==
[~2019-06-23] VITALS: Ht 162.6 cm; Wt 88.6 kg
[~2019-06-23 08:11] MED LIST changes: +LEVOFLOXACIN500 MG PO; +MEDROL DOSE PACK4 MG PO
[2019-06-23 08:14] VITALS: Ht 162.6 cm; Wt 88.6 kg
[2019-06-23] MEDS ORDERED: TORADOL10 MG PO (08:48)
[2019-06-23 09:15] VITALS: BP 158/73
== END 2019-06-23 09:16 | disposition home or self-care (01) ==
LOC: D.ER 08:11
DX: S83.91XA Sprain of unspecified site of right knee, initial encounter (principal); X50.1XXA Overexertion from prolonged static or awkward postures, initial encounter; F32.9 Major depressive disorder, single episode, unspecified; F17.210 Nicotine dependence, cigarettes, uncomplicated

== ENCOUNTER 2019-07-10 04:22 | Observation (INO) | payer BC ==
[~2019-07-10] VITALS: Ht 162.6 cm; Wt 86.4 kg
[2019-07-10] MEDS ORDERED: EPIPEN 2-P0.3 MG/0.3 IM (05:11)
[2019-07-10] MEDS ORDERED: PREDNISONE50 MG PO (05:11)
[2019-07-10 06:18] VITALS: BP 173/73
--- NOTE | 2019-07-10 06:25 | NUR ---
PT REPORTS TO NURSE, "I AM STILL ITCHY." THIS NURSE REPORTS TO EDP.
--- NOTE | 2019-07-10 06:27 | NUR ---
PT SITTING IN FOWLERS POSITION IN BED. NO SIGNS DISTRESS NOTED. RESPIRATIONS APPEAR EVEN AND UNLABORED. PT OBSERVED SCRATCHING EXTREMETIES.
[2019-07-10 07:21] VITALS: BP 147/72; Ht 162.6 cm; Wt 86.4 kg
--- NOTE | 2019-07-10 07:30 | NUR ---
PATIENT ADMITTED TO ROOM 2223. ADMISSION COMPLETE. DENIES NEEDS. BED LOW. CALL RANDOLPH AND PERSONAL ITEMS IN REACH.
[2019-07-10 09:21] VITALS: BP 147/72
--- NOTE | 2019-07-10 09:35 | NUR ---
SPOKE WITH REN BARKER ABOUT PATIENT NAUSEA AND ITCHING. STATES GIVE ONE TIME DOSE ZOFRAN 6MG PO AND ONE TIME DOSE BENADRYL 25MG PO.
--- NOTE | 2019-07-10 10:15 | NUR ---
REQUESTED AND GIVEN NICOTINE PATCH PER REN BARKER. DENIES FURTHER NEEEDS.
--- NOTE | 2019-07-10 12:30 | NUR ---
SITTING IN BED EATING LUNCH. DENIES NEEDS. WILL CONTINUE TO MONITOR.
[2019-07-10 12:40] VITALS: BP 137/62
--- NOTE | 2019-07-10 14:34 | NUR ---
DISCHARGE EDUCATION PROVIDED BOTH WRITTEN AND VERBAL. VERBALIZED UNDERSTANDING. DENIES FURTHER QUESTIONS. IV REMOVED FROM LEFT AC WITH TIP INTACT. REQUESTED AND GIVEN NOTE FOR WORK D/T HOSPITAL STAY. DENIES FURTHER NEEDS. PATIENT DISCHARGED HOME WITH ALL BELONGINGS.
--- NOTE | 2019-07-11 08:17 | MORECARE ---
CASE MANAGEMENT DISCHARGE SUMMARY PATIENT: LES BRAGG UNIT: [id number] ADM DATE: 07/10/19 AGE: 63 : 55 SEX: F ROOM/BED: D.2223 AUTHOR: ANDREW GALLO PHYSICIAN: REFERRING PHYSICIAN: JOSE FLOWERS MD DATE OF SERVICE: 07/11/19 Discharge Plan Patient Name: LES BRAGG [facility] [facility] 1955 Planned Disposition: Home Anticipated Discharge Date: Discharge Date: 07/10/2019 Expected LOS: 0 Initial Reviewer: [email or web address] Initial Review Date: 07/11/2019 Generated: 07/11/19 9:16 am Patient Name: LES BRAGG Page 36191 at 0817 All edits/amendments must be made on the electronic document DICTATION DATE: 07/11/19815 SWITCHBOARD MECHANIC: MOHAMUD 07/11/19815 RPT#: [id number] DC DATE:07/10/19 STATUS: DIS IN [facility] [address] [place] [address] END OF REPORT
== END 2019-07-10 14:36 | disposition home or self-care (01) ==
LOC: D.ER 04:22 → D.MS 06:25 → OBSVTIME 06:25 → D.MS 14:36
PROVIDERS: ADMIT Internal Medicine Nephrology; ATTEND Internal Medicine Nephrology
DX: T40.4X5A Adverse effect of other synthetic narcotics, initial encounter (principal); F17.200 Nicotine dependence, unspecified, uncomplicated

== ENCOUNTER 2019-08-02 16:06 | Inpatient (IN) | payer BC ==
[~2019-08-02] VITALS: Ht 162.6 cm; Wt 98.0 kg
[~2019-08-02 16:06] MED LIST changes: +EPIPEN 2-P0.3 MG/0.3 IM; +PREDNISONE50 MG PO
[2019-09-13 09:02] LABS: BASOPHILS 1.3 % (0-2); EOSINOPHILS 2.5 % (0-7); HEMATOCRIT 42.9 % (36.0-48.0); HEMOGLOBIN 14.5 g/dL (12-16); IMMATURE GRANULOCYTES 0.2 % (0-5); LYMPHOCYTES 38.3 % (15-50); MCH 33.8 pg (26.0-34.0); MCHC 33.8 g/dL (31.0-37.0); MONOCYTES 9.8 % (2-11); NEUTROPHILS 47.9 % (40-80); PLATELET COUNT 232 10x3/uL (130-400); RBC 4.29 10x6/uL (4.00-5.40); RDW 13.9 % (11.5-14.5); WBC 5.6 10x3/uL (4.8-10.8)
[2019-09-13 09:24] LABS: CALC OSMOLALITY 283 mosm/kg (275-300); CALCIUM 9.4 mg/dL (8.5-10.1); CARBON DIOXIDE 29.4 mmol/L (21.0-32.0); CHLORIDE - SERUM 105 mmol/L (98-107); CREATININE - SERUM 0.8 mg/dL (0.6-1.3); GLUCOSE 92 mg/dL (74-106); SODIUM 142 mmol/L (136-145); UREA NITROGEN 15 mg/dL (7-18); eGFR NON AFRICAN AMERICAN 77 mL/min (90-120)
[2019-09-13] MEDS ORDERED: DILAUDID2 MG PO (09:25)
[2019-09-13 09:27] LABS: APTT 34.5 SECONDS (22.8-39.4); INR 0.99 (0.85-1.17); PROTIME 12.6 SECONDS (11.6-15.0)
[2019-09-13 09:58] LABS: APPEARANCE CLEAR (CLEAR); BILIRUBIN NEGATIVE (NEGATIVE); COLOR YELLOW (YELLOW); GLUCOSE NEGATIVE (NEGATIVE); KETONE NEGATIVE (NEGATIVE); NITRITE NEGATIVE (NEGATIVE); PROTEIN NEGATIVE (NEGATIVE); UROBILINOGEN NORMAL (NORMAL)
[2019-09-17] MEDS ORDERED: XANAX1 MG PO (05:56)
[2019-09-17 05:57] VITALS: BP 134/60; BMI 37.1
--- NOTE | 2019-09-17 08:19 | NUR ---
PLASMA BLADE SET TO 6/8 GROUNDING PAD ON PT LEFT FLANK PAD LOT # [id number] EXP 12/03/2020 PT RIGHT LEG CLEANSED WITH HIBICLEANSE AND ALCOHOL FROM UPPER THIGH TO TOE CIRCUMFERENTIALLY, DRIED WITH STERILE TOWEL, THEN PREPPED WITH CHLORAPREP X2 FROM UPPER THIGH TO TOE CIRCUMFERENTIALLY
[2019-09-17 10:20] VITALS: BP 124/57
--- NOTE | 2019-09-17 10:30 | NUR ---
RECEIVED PATIENT FROM RECOVERY. ALERT AND ORIENTED, SLIGHTLY DROWSY. NO C/O PAIN. NO S/S OF ACUTE DISTRESS NOTED. IV TO LEFT FOREARM, SL. SITE PATENT WITHOUT REDNESS OR SWELLING. ON 4L O2, NC. WOUND VAC TO RIGHT KNEE. DENIES ANY NEEDS AT THIS TIME. CALL LIGHT IN REACH. WILL CONTINUE TO MONITOR.
[2019-09-17 12:12] VITALS: BP 124/57
[2019-09-17 18:05] VITALS: BP 102/48
--- NOTE | 2019-09-17 18:39 | NUR ---
ALERT AND ORIENTED, RESTING IN BED WITH EYES OPEN. NO C/O PAIN. NO S/S OF ACUTE DISTRESS NOTED. CPM ON. DENIES ANY NEEDS AT THIS TIME. CALL LIGHT IN REACH. WILL CONTINUE TO MONITOR.
[2019-09-17 20:52] VITALS: BP 103/80
[2019-09-18 00:30] VITALS: BP 94/62
--- NOTE | 2019-09-18 01:28 | NUR ---
rESTING IN BED WITH NO NEEDS NOTED OR STATED RESPRATIONS ARE EVEN AND UNLABORED CALL LIGHT AND WATER IN REACH. IV TO LEFT FA. WITH 1/2 NS AT 50ML/HR. RIGHT KNEE WITH PREVENA WOUND VACK IN PLACE AND WORKING. CPM PER ORDERS. UP AT [facility] WITH WALKER. NO NEEDS AT THIS TIME.
[2019-09-18 05:00] LABS: BASOPHILS 0.2 % (0-2); EOSINOPHILS 0.4 % (0-7); HEMOGLOBIN 11.1 g/dL (12-16); IMMATURE GRANULOCYTES 0.2 % (0-5); LYMPHOCYTES 11.2 % (15-50); MCH 33.5 pg (26.0-34.0); MCHC 32.6 g/dL (31.0-37.0); MCV 102.7 fL (80.0-100.0); MEAN PLATELET VOLUME 10.2 fL (7.4-10.4); MONOCYTES 9.4 % (2-11); NEUTROPHILS 78.6 % (40-80); PLATELET COUNT 197 10x3/uL (130-400); RBC 3.31 10x6/uL (4.00-5.40); RDW 14.4 % (11.5-14.5); WBC 10.7 10x3/uL (4.8-10.8)
[2019-09-18 05:29] LABS: ALBUMIN 3.3 g/dL (3.4-5.0); ANION GAP 14.2 mmol/L (8-16); BILIRUBIN - TOTAL 0.57 mg/dL (0.2-1.3); CALCIUM 8.2 mg/dL (8.5-10.1); CARBON DIOXIDE 26.6 mmol/L (21.0-32.0); CREATININE - SERUM 2.2 mg/dL (0.6-1.3); MAGNESIUM - SERUM 1.9 mg/dL (1.8-2.4); PHOSPHOROUS 5.5 mg/dL (2.5-4.9); POTASSIUM - SERUM 4.8 mmol/L (3.5-5.1); PROTEIN - SERUM 6.1 g/dL (6.4-8.2)
[2019-09-18 05:30] VITALS: BP 98/64
--- NOTE | 2019-09-18 08:00 | NUR ---
BLADDER SCANNED 67CC OF URINE IN BLADDER PER SCAN
--- NOTE | 2019-09-18 08:00 | NUR ---
ASSESMENT PER FLOW SHEET. PT IS WITHOUT DISTRESS.CPM HAS BEEN USED THIS AM. MONITOR FOR NEEDS.
[2019-09-18 08:08] VITALS: BP 93/49
--- NOTE | 2019-09-18 10:59 | OP ---
PATIENT NAME: LES GREEN MEDICAL RECORD: [id number] :55 LOCATION:D.MS [facility] ADMISSION DATE:09/17/19 SURGEON: PABLITO LOCKETT DO DATE OF OPERATION: 09/17/2019 PROCEDURE PERFORMED: Right total knee arthroplasty. PREOPERATIVE DIAGNOSIS: Right knee osteoarthritis. POSTOPERATIVE DIAGNOSIS: Right knee osteoarthritis. INDICATIONS: Ms. Green is a 63-year-old female who has had right knee pain for quite some time. She had a knee scope. She did have a meniscal tear, which was trimmed out last year, also showed some chondromalacia. She had continued knee pain, had several injections to no avail. She is tired of dealing with the pain and wanted a total knee done. I informed of the risks including infection, bleeding, damage to nerves and vessels, need for further surgery, continued pain, blood clots, failure of hardware, fracture, and even and she signed the consent. SURGEON: Pablito Lockett DO I was assisted by Jacky Rocha, advanced nurse practitioner. He assisted with retraction and closing. I was also assisted by Yoni Crawford, certified surgical first mate, who assisted with those things as well. DESCRIPTION OF PROCEDURE: The patient received an adductor canal block in the preoperative area and taken to the operative suite, laid in supine position, given a gram of vancomycin preoperatively and a gram of TXA. She was then sedated and intubated. The right lower extremity was then prepped and draped in sterile fashion. A timeout was performed and everyone was in agreement with the correct side, site, patient and procedure. We then began by marking out the incision. She is wrapped in a clear dressing as SHE HAD AN ALLERGY TO THE IODINE; however, she did not have a reaction when she was on it before, but I did not want to take any chance with that on the skin. The incision was then made with a 10 blade scalpel down to the capsule. Medial parapatellar approach was then used. Any bleeding was coagulated with Aquamantys throughout the procedure. The patella was then everted, part of the fat pad was removed and the patella was milled down to fit the prosthesis. The femur was then flexed up and the femoral canal was entered. Distal femur was cut. The proximal tibia was cut and then the menisci were removed with the knee in extension using a lamina curing pickling packer and an EyesBot-[place] and a Bovie to remove the menisci. The extension block fit, but we had to take some of the lateral tibia plateau off as they have a small piece that did not get cut with the saw and then flexed the femur and measured the femur to be a 65, 4-in-1 cutting block was then put on and the Jerry wing was used to ensure there is no notching. It was then cut and the trial was put on. The tibial tray was floated in and ranged. Rotation was then marked. Then, drilled the lug holes on the femur and holes on the patella. We then exposed the tibia and sized it to be 67 tibia. This was drilled and punched and then extra holes put in the tibia for the cement mantle. Cement was then mixed, placed in the tibia and on the tibial tray and impacted in place. Excess cement was removed. The femur was then impacted on and a 10 poly was put in between them and brought to extension and held and then the patella was cemented on as well and held in place with a squeezer. We then irrigated with a solution of povidone iodine 10% even when we were aware of the patient's OPERATIVE REPORT [id number] MINOR,LES LEDEZMA allergy, but knew that we would be irrigating it out thoroughly and as we did it, set them for 3 minutes. Cement was removed too and then we irrigated with over a liter of normal saline and there is no reaction of the tissue. I then sized and put it to a 10. 10 fit very well, 12 popped out as it was too tight in flexion. The 10 poly standard was put in and locked into place. We did open a deep dish poly, but this was too tight in flexion and used a 10 standard. This was locked into place and then irrigated one more time and irrigated the Sabino powder and vancomycin and tobramycin powder was then placed in the knee. The capsule was then closed with #2 Ethibond in a mrokaz-vz-ncfvi fashion and skin was then closed with 2-0 Vicryl in inverted interrupted fashion and ZipLine placed on the knee and then an Arthrosurface Prevena VAC was placed on the right lower extremity. She also had MARJORIE hose stocking placed up to the knee and Canelo wrap. She was then awakened and taken to recovery in stable condition. Blood loss was approximately 200 mL. COMPLICATIONS: None. TRANSINT:[id number] Voice Confirmation ID: [id number] DOCUMENT ID: [id number] PABLITO LOCKETT DO at 1059 CC: [id number] DICTATION DATE: 09/17/19921 ONLINE PROJECT MANAGER: 09/17/19 1345 ADM IN [facility] [id number] [place] [address]
[2019-09-18 12:18] VITALS: BP 88/43
[2019-09-18 17:08] VITALS: BP 99/80
--- NOTE | 2019-09-18 19:29 | NUR ---
PAIN CONTROLLED WITH MEDS ORDERED.WITHOUT CHANGE.CONT PLAN OF CARE
[2019-09-18 20:58] VITALS: BP 121/85
--- NOTE | 2019-09-18 21:55 | NUR ---
LYING IN BED WITH EYES CLOSED. SNORING. AWAKENED FOR MED PASS. NO PAIN. WOUND VAC NOTED TO RT KNEE WITH NO DRAINAGE IN CANISTER. RESP SHALLOW. NONPROD COUGH. BBS EXP WHEEZES IN BUL. BED ALARM ON FOR PT SAFETY. 1/2NS @ 50 MLHR INFUSING IN LT FOREARM. LT FOREARM IS SLIGHTLY SWOLLEN AND BRUISED AT IV SITE. PT INSISTS ITS OK AND REFUSES TO LET STAFF RESITE HER. CL IN REACH.
--- NOTE | 2019-09-19 01:19 | NUR ---
ASSISTED UP TO BR TO VOID. AMBULATED WITH WALKER. AMB WELL. CL IN REACH. BACK TO BED. BED ALARM ON
[2019-09-19 04:00] VITALS: BP 113/91
--- NOTE | 2019-09-19 04:55 | NUR ---
STAFF ASSISTED PT UP TO BR TO VOID AGAIN. TALKED PT INTO LETTING STAFF D/C IV IN LT FOREARM THAT IS SWOLLEN AND BRUISED. SHE AGREED. PT TIN WELL. NEW IV STARTED IN RT FOREARM AFTER ATTEMPT X1.
--- NOTE | 2019-09-19 05:15 | NUR ---
CPM ON AT THIS TIME. CL IN REACH.
[2019-09-19 06:15] LABS: BASOPHILS 0.3 % (0-2); EOSINOPHILS 2.4 % (0-7); HEMATOCRIT 31.4 % (36.0-48.0); HEMOGLOBIN 10.2 g/dL (12-16); IMMATURE GRANULOCYTES 0.2 % (0-5); LYMPHOCYTES 20.6 % (15-50); MCH 33.1 pg (26.0-34.0); MCHC 32.5 g/dL (31.0-37.0); MCV 101.9 fL (80.0-100.0); MEAN PLATELET VOLUME 10.3 fL (7.4-10.4); MONOCYTES 13.4 % (2-11); NEUTROPHILS 63.1 % (40-80); PLATELET COUNT 195 10x3/uL (130-400); RBC 3.08 10x6/uL (4.00-5.40); RDW 14.3 % (11.5-14.5); WBC 8.9 10x3/uL (4.8-10.8)
[2019-09-19 06:46] LABS: ALBUMIN 3.2 g/dL (3.4-5.0); BILIRUBIN - TOTAL 0.52 mg/dL (0.2-1.3); CALCIUM 8.2 mg/dL (8.5-10.1); CARBON DIOXIDE 24.2 mmol/L (21.0-32.0); PHOSPHOROUS 5.6 mg/dL (2.5-4.9); POTASSIUM - SERUM 4.2 mmol/L (3.5-5.1); PROTEIN - SERUM 6.3 g/dL (6.4-8.2)
[2019-09-19 06:47] LABS: CREATININE - SERUM 2.9 mg/dL (0.6-1.3)
[2019-09-19 10:12] VITALS: BP 117/48
[2019-09-19 10:48] VITALS: Ht 162.6 cm; Wt 98.0 kg
[2019-09-19 12:47] VITALS: BP 113/46
--- NOTE | 2019-09-19 14:37 | NUR ---
PT STATES SHE CANNOT REMEMBER YESTERDAY WELL. SHE WANTS TO DC HOME SOON. REFUSES TO WALK WITH PT IN HALLS
[2019-09-19 17:31] VITALS: BP 119/51
[2019-09-19 18:33] LABS: APPEARANCE CLEAR (CLEAR); BILIRUBIN NEGATIVE (NEGATIVE); COLOR STRAW (YELLOW); GLUCOSE NEGATIVE (NEGATIVE); KETONE NEGATIVE (NEGATIVE); NITRITE NEGATIVE (NEGATIVE); PROTEIN NEGATIVE (NEGATIVE); UROBILINOGEN NORMAL (NORMAL)
--- NOTE | 2019-09-19 19:05 | NUR ---
HAS BEEN WITHOUT DISTRESS THIS AFTERNOON. HAS HAD SOME ANXIETY RE.. PT SMOKES AT HOME. MEDS ORDERED PER NOV. CONT PLAN OF CARE
--- NOTE | 2019-09-19 19:30 | NUR ---
GETTING OOB WITHOUT HELP, TOOK SELF OFF OF CPM. VERY CONFUSED, ANXIOUS. ASSISTED TO BR TO VOID. BED ALARM ACTIVATING. PROVENA WOUND VAC TO RT KNEE WITH NO DRAINAGE. ORIENTED TO SELF ONLY. LR @ 125 ML/HR INFUSING IN LT FOREARM. DENIES PAIN. ASSISTED BACK TO BED. DAVID AND BED ALARM ON. CL IN REACH.
[2019-09-19 20:00] VITALS: BP 153/67
[2019-09-20] VITALS: BP 144/63
--- NOTE | 2019-09-20 02:01 | NUR ---
HAS TRIED TO GET OOB MULTIPLE TIMES TONIGHT WITHOUT CALLING FOR STAFF ASSIST CAUSING BED ALARM TO ACTIVATE. VERY CONFUSED. INCREASED UOP TONIGHT. IV PULLED OUT OF RT FOREARM. IV RESTARTED IN LT FOREARM AFTER 1 ATTEMPT.
[2019-09-20 04:00] VITALS: BP 137/80
--- NOTE | 2019-09-20 04:45 | NUR ---
ASSISTED UP TO BR TO VOID. SEEMS TO BE MORE ALERT AND IS ORIENTED X4 THIS AM. DAVID ALARM ON. CL IN REACH. DENIES PAIN.
[2019-09-20 05:17] LABS: BASOPHILS 0.1 % (0-2); EOSINOPHILS 2.2 % (0-7); HEMATOCRIT 32.4 % (36.0-48.0); HEMOGLOBIN 10.8 g/dL (12-16); IMMATURE GRANULOCYTES 0.3 % (0-5); MCH 32.9 pg (26.0-34.0); MCHC 33.3 g/dL (31.0-37.0); MONOCYTES 13.8 % (2-11); NEUTROPHILS 66.6 % (40-80); PLATELET COUNT 200 10x3/uL (130-400); RBC 3.28 10x6/uL (4.00-5.40); RDW 13.7 % (11.5-14.5); WBC 7.2 10x3/uL (4.8-10.8)
[2019-09-20 05:45] LABS: MCV 98.8 fL (80.0-100.0)
[2019-09-20 06:29] LABS: ALBUMIN 3.2 g/dL (3.4-5.0); ANION GAP 14.4 mmol/L (8-16); BILIRUBIN - TOTAL 0.85 mg/dL (0.2-1.3); CALCIUM 8.6 mg/dL (8.5-10.1); CARBON DIOXIDE 24.7 mmol/L (21.0-32.0); POTASSIUM - SERUM 4.1 mmol/L (3.5-5.1); PROTEIN - SERUM 6.5 g/dL (6.4-8.2); VANCOMYCIN - RANDOM 15.9 ug/mL (10.0-20.0)
[2019-09-20 06:30] LABS: CREATININE - SERUM 1.4 mg/dL (0.6-1.3); PHOSPHOROUS 3.2 mg/dL (2.5-4.9)
[2019-09-20] MEDS ORDERED: ELIQUIS2.5 MG PO (08:34)
[2019-09-20] MEDS ORDERED: VISTARIL50 MG PO (08:35)
[2019-09-20] MEDS ORDERED: DILAUDID4 MG PO (08:35)
[2019-09-20] MEDS ORDERED: KEFLEX500 MG PO (08:35)
[2019-09-20 08:49] VITALS: BP 147/59
--- NOTE | 2019-09-20 09:33 | MORECARE ---
CASE MANAGEMENT DISCHARGE SUMMARY PATIENT: LES BRAGG UNIT: [id number] ADM DATE: 09/17/19 AGE: 63 : 55 SEX: F ROOM/BED: D.2213 AUTHOR: ANDREW GALLO PHYSICIAN: REFERRING PHYSICIAN: KEILA LOCKETT DO DATE OF SERVICE: 09/20/19 Discharge Plan Patient Name: LES BRAGG [facility] [facility] 1955 Planned Disposition: Home Anticipated Discharge Date: 09/20/19 Discharge Date: Expected LOS: 3 Initial Reviewer: [email or web address] Initial Review Date: 09/20/2019 Generated: 09/20/19 10:32 am External Providers [facility] Next Contact Date: Service Request Date: Service Type: Resolution: Reviewer: Comments: Patient Name: LES BRAGG Page [phone] at 0933 All edits/amendments must be made on the electronic document DICTATION DATE: 09/20/19931 TECHNOLOGY LAB TEACHER: DM 09/20/19931 RPT#: [id number] DC DATE: STATUS: ADM IN [facility] [address] [place] [address] END OF REPORT
--- NOTE | 2019-09-20 09:41 | MORECARE ---
CASE MANAGEMENT DISCHARGE SUMMARY PATIENT: LES BRAGG UNIT: [id number] ADM DATE: 09/17/19 AGE: 63 : 55 SEX: F ROOM/BED: D.4383 AUTHOR: SABINODOC PHYSICIAN: REFERRING PHYSICIAN: PABLITO LOCKETT DO DATE OF SERVICE: 09/20/19 Discharge Plan Patient Name: LES BRAGG Facility: [facility]:[place] : 1955 Planned Disposition: Home Anticipated Discharge Date: 09/20/19 Discharge Date: Expected LOS: 3 Initial Reviewer: [email or web address] Initial Review Date: 09/20/2019 Generated: 09/20/19 10:40 am Comments DCP- Discharge Planning Updated by [email or web address]: Suma Sparrow on 09/20/19 8:[address] Patient Name: LES BRAGG Admission Status: Elective Accout number: [id number] Admission Date: 09-17-2019 : 1955 Admission Diagnosis: Attending: PABLITO LOCKETT Current LOS: 3 Anticipated DC Date: 09-20-2019 Planned Disposition: Home Primary Insurance: [employer] OUT OF STATE Discharge Planning Comments: CM met with patient to complete initial dc planning assessment. CM educated patient on the CM role and verbal consent given by patient to complete assessment. Patient lives at home with her . At discharge patient plans to return and feels this is a safe discharge. CM discussed availability of home health, rehab services, and medical equipment. Patient states she wants to do her OP PT here at [facility]. I spoke with Noah in PT and her first visit will be Monday at 9am. I called Pablito with [employer] and he states he will call her and deliver her CPM to her home. She declines a BSC. States her will pick her up for discharge. CM will continue to follow and will assist as needed with dc plans/needs. Water Quality Specialist: Suma Sparrow DCPIA - Discharge Planning Initial Assessment Updated by [email or web address]: Suma Sparrow on 09/20/19 9:33 am * Is the patient Alert and Oriented? Yes * How many steps to enter\exit or inside your home? 0/0 * Pharmacy [facility] * Preadmission Environment Home with Family * ADLs Independent * Equipment Other Walker * Other Equipment CPM * List name and contact numbers for known caregivers / representatives who currently or will assist patient after discharge: Pablito toledo - [phone] * Verbal permission to speak to the caregivers and representatives has been obtained from the patient. Yes * Community resources currently utilized None * Additional services required to return to the preadmission environment? Yes * Can the patient safely return to the preadmission environment? Yes * Has this patient been hospitalized within the prior 30 days at any hospital? No Last DP export: 09/20/19 8:33 am Patient Name: LES BRAGG Page [phone] at 0941 All edits/amendments must be made on the electronic document DICTATION DATE: 09/20/19939 LACE CUTTER: MOHAMUD 09/20/19939 RPT#: [id number] DC DATE: STATUS: ADM IN [facility] [address] [place] [address] END OF REPORT
--- NOTE | 2019-09-20 11:18 | NUR ---
PATIENT RECIEVED THIS AM FROM PREVIOUS SHIFT RESTING IN BED WITH NO DISTRESS. NO NEEDS VOICED. PATIENT IS ALERT AND ORIENTED. AMBULATES WITH ASSISTANCE TO RESTROOM. NO REQUEST FOR PAIN MEDICAITONS. IV REMOVED FROM LEFT FOREARM WITH NO REDNESS OR EDEMA. PATIENT WILL DISCHARGE LATER TODAY.
--- NOTE | 2019-09-20 12:35 | NUR ---
DISCHARGE INSTRUCITONS GIVEN, PATIENT VOICED UNDERSTANDING. PATIENT TAKEN BY WHEELCHAIR TO PRIVATE CAR.
[2019-09-21 07:12] LABS: HEPATITIS C ANTIBODY 0.1 S/CO RAT (0.0-0.9)
--- NOTE | 2019-09-21 09:57 | MORECARE ---
CASE MANAGEMENT DISCHARGE SUMMARY PATIENT: LES BRAGG UNIT: [id number] ADM DATE: 09/17/19 AGE: 63 : 55 SEX: F ROOM/BED: D.4823 AUTHOR: ANDREW GALLO PHYSICIAN: REFERRING PHYSICIAN: PABLITO LOCKETT DO DATE OF SERVICE: 09/21/19 Discharge Plan Patient Name: LES BRAGG Facility: [facility]:[place] : 1955 Planned Disposition: Home Anticipated Discharge Date: 09/20/19 Discharge Date: 09/20/2019 Expected LOS: 3 Initial Reviewer: [email or web address] Initial Review Date: 09/20/2019 Generated: 09/21/19 10:57 am Comments DCP- Discharge Planning Updated by [email or web address]: Suma Sparrow on 09/20/19 8:[address] Patient Name: LES BRAGG Admission Status: Elective Accout number: [id number] Admission Date: 09-17-2019 : 1955 Admission Diagnosis: Attending: PABLITO LOCKETT Current LOS: 3 Anticipated DC Date: 09-20-2019 Planned Disposition: Home Primary Insurance: [employer] OUT OF STATE Discharge Planning Comments: CM met with patient to complete initial dc planning assessment. CM educated patient on the CM role and verbal consent given by patient to complete assessment. Patient lives at home with her . At discharge patient plans to return and feels this is a safe discharge. CM discussed availability of home health, rehab services, and medical equipment. Patient states she wants to do her OP PT here at [facility]. I spoke with Noah in PT and her first visit will be Monday at 9am. I called Pablito with [employer] and he states he will call her and deliver her CPM to her home. She declines a BSC. States her will pick her up for discharge. CM will continue to follow and will assist as needed with dc plans/needs. Soybean Grower: Suma Sparrow DCPIA - Discharge Planning Initial Assessment Updated by [email or web address]: Suma Sparrow on 09/20/19 9:33 am * Is the patient Alert and Oriented? Yes * How many steps to enter\exit or inside your home? 0/0 * Pharmacy [facility] * Preadmission Environment Home with Family * ADLs Independent * Equipment Other Walker * Other Equipment CPM * List name and contact numbers for known caregivers / representatives who currently or will assist patient after discharge: Pablito toledo - [phone] * Verbal permission to speak to the caregivers and representatives has been obtained from the patient. Yes * Community resources currently utilized None * Additional services required to return to the preadmission environment? Yes * Can the patient safely return to the preadmission environment? Yes * Has this patient been hospitalized within the prior 30 days at any hospital? No Last DP export: 09/20/19 8:41 am Patient Name: MAHSA, LES Page 33169 at 0957 All edits/amendments must be made on the electronic document DICTATION DATE: 09/21/19956 MEN'S BASKETBALL COACH: MOHAMUD 09/21/19956 RPT#: [id number] DC DATE:09/20/19 STATUS: DIS IN [facility] [address] [place] [address] END OF REPORT
== END 2019-09-20 12:36 | disposition home or self-care (01) | DRG 469 ==
LOC: D.SDCHOLD 09-17 05:00 → D.MS 09-17 05:00 → D.SDCHOLD 09-17 07:00 → D.MS 09-17 09:50
PROVIDERS: Emergency Medicine; Internal Medicine; ADMIT Orthopaedic Surgery; ATTEND Orthopaedic Surgery
PROC: 0SRC0J9 Replacement of Right Knee Joint with Synthetic Substitute, Cemented, Open Approach (ICD-10-PCS; principal; 2019-09-17 07:00)
DX: M17.11 Unilateral primary osteoarthritis, right knee (principal); N17.0 Acute kidney failure with tubular necrosis; D62 Acute posthemorrhagic anemia; N14.1 Nephropathy induced by other drugs, medicaments and biological substances; F41.8 Other specified anxiety disorders

== ENCOUNTER 2019-09-30 08:18 | Emergency (ER) | payer BC ==
[~2019-09-30] VITALS: Ht 162.6 cm; Wt 90.9 kg
[~2019-09-30 08:18] MED LIST changes: +DILAUDID2 MG PO
[2019-09-30 08:26] VITALS: Ht 162.6 cm; Wt 90.9 kg
[2019-09-30] MEDS ORDERED: ADVIL200 MG PO (08:28)
[2019-09-30 08:55] LABS: BASOPHILS 0.4 % (0-2); EOSINOPHILS 2.3 % (0-7); HEMATOCRIT 39.3 % (36.0-48.0); HEMOGLOBIN 13.3 g/dL (12-16); IMMATURE GRANULOCYTES 0.2 % (0-5); LYMPHOCYTES 27.1 % (15-50); MCH 33.2 pg (26.0-34.0); MCHC 33.8 g/dL (31.0-37.0); RBC 4.01 10x6/uL (4.00-5.40); RDW 13.4 % (11.5-14.5); WBC 9.4 10x3/uL (4.8-10.8)
[2019-09-30 08:56] LABS: PLATELET COUNT 375 10x3/uL (130-400)
[2019-09-30 09:11] LABS: CALC OSMOLALITY 282 mosm/kg (275-300); CALCIUM 9.3 mg/dL (8.5-10.1); CARBON DIOXIDE 28.7 mmol/L (21.0-32.0); CHLORIDE - SERUM 103 mmol/L (98-107); CREATININE - SERUM 1.2 mg/dL (0.6-1.3); GLUCOSE 94 mg/dL (74-106); POTASSIUM - SERUM 3.9 mmol/L (3.5-5.1); SODIUM 141 mmol/L (136-145); UREA NITROGEN 17 mg/dL (7-18); eGFR NON AFRICAN AMERICAN 48 mL/min (90-120)
[2019-09-30 09:21] LABS: ALBUMIN 3.9 g/dL (3.4-5.0); ALKALINE PHOSPHATASE 112 U/L (46-116); ALT (SGPT) 21 U/L (10-68); AMYLASE - SERUM 18 U/L (25-115); BILIRUBIN - TOTAL 0.67 mg/dL (0.2-1.3); LIPASE 75 U/L (73-393); TROPONIN-I < 0.017 ng/mL (0.000-0.060)
[2019-09-30 09:57] LABS: APPEARANCE CLEAR (CLEAR); BILIRUBIN NEGATIVE (NEGATIVE); COLOR YELLOW (YELLOW); GLUCOSE NEGATIVE (NEGATIVE); KETONE NEGATIVE (NEGATIVE); NITRITE NEGATIVE (NEGATIVE); PROTEIN NEGATIVE (NEGATIVE); SPECIFIC GRAVITY 1.025 (1.005-1.020); UROBILINOGEN NORMAL (NORMAL)
[2019-09-30] MEDS ORDERED: ZOFRAN ODT4 MG/UDTAB PO (11:26)
[2019-09-30 11:58] VITALS: BP 135/65
== END 2019-09-30 11:59 | disposition home or self-care (01) ==
LOC: D.ER 08:18
PROVIDERS: Family Medicine
DX: R10.9 Unspecified abdominal pain (principal); R11.2 Nausea with vomiting, unspecified; E86.0 Dehydration; R19.7 Diarrhea, unspecified

== ENCOUNTER 2019-11-08 06:40 | Emergency (ER) | payer BC ==
[~2019-11-08] VITALS: Ht 162.6 cm; Wt 85.7 kg
[~2019-11-08 06:40] MED LIST changes: +ADVIL200 MG PO; +ZOFRAN ODT4 MG/UDTAB PO
[2019-11-08 06:48] VITALS: Ht 162.6 cm; Wt 85.7 kg
[2019-11-08 07:30] LABS: BASOPHILS 1.6 % (0-2); HEMATOCRIT 38.6 % (36.0-48.0); LYMPHOCYTES 29.8 % (15-50); MCHC 33.7 g/dL (31.0-37.0); MEAN PLATELET VOLUME 9.5 fL (7.4-10.4); MONOCYTES 15.7 % (2-11); NEUTROPHILS 47.9 % (40-80); RBC 3.94 10x6/uL (4.00-5.40); RDW 13.6 % (11.5-14.5); WBC 4.4 10x3/uL (4.8-10.8)
[2019-11-08 07:33] LABS: PLATELET COUNT 239 10x3/uL (130-400)
[2019-11-08 07:44] LABS: ANION GAP 13.1 mmol/L (8-16); CARBON DIOXIDE 26.8 mmol/L (21.0-32.0); POTASSIUM - SERUM 3.9 mmol/L (3.5-5.1)
[2019-11-08 07:50] LABS: ALBUMIN 3.7 g/dL (3.4-5.0); BILIRUBIN - TOTAL 0.71 mg/dL (0.2-1.3); PROTEIN - SERUM 7.6 g/dL (6.4-8.2)
[2019-11-08] MEDS ORDERED: TAMIFLU75 MG PO (08:04)
[2019-11-08 08:16] VITALS: BP 132/63
== END 2019-11-08 08:18 | disposition home or self-care (01) ==
LOC: D.ER 06:40
PROVIDERS: Emergency Medicine
DX: R50.9 Fever, unspecified (principal); J06.9 Acute upper respiratory infection, unspecified; Z72.0 Tobacco use

== ENCOUNTER → 2019-11-15 10:00 | Outpatient (CLI) | payer BC ==
[2019-11-08 06:48] VITALS: BMI 34.4
[~2019-11-15 10:00] MED LIST changes: +TAMIFLU75 MG PO
== END | disposition home or self-care (01) ==
LOC: D.MAMMO 10:00
PROVIDERS: ATTEND Family Medicine
DX: Z12.31 Encounter for screening mammogram for malignant neoplasm of breast (principal)

== ENCOUNTER 2020-02-28 06:30 | Day surgery (SDC) | payer BC ==
[2020-02-26 15:07] LABS: BASOPHILS 0.6 % (0-2); EOSINOPHILS 3.2 % (0-7); HEMATOCRIT 39.5 % (36.0-48.0); HEMOGLOBIN 12.8 g/dL (12-16); IMMATURE GRANULOCYTES 0.1 % (0-5); LYMPHOCYTES 37.8 % (15-50); MCH 32.5 pg (26.0-34.0); MCHC 32.4 g/dL (31.0-37.0); MCV 100.3 fL (80.0-100.0); MEAN PLATELET VOLUME 9.9 fL (7.4-10.4); MONOCYTES 10.5 % (2-11); NEUTROPHILS 47.8 % (40-80); PLATELET COUNT 235 10x3/uL (130-400); RBC 3.94 10x6/uL (4.00-5.40); WBC 6.8 10x3/uL (4.8-10.8)
[~2020-02-28] VITALS: Ht 162.6 cm; Wt 84.8 kg
[2020-02-28] MEDS ORDERED: XANAX1 MG PO (07:00)
[2020-02-28 07:01] VITALS: BP 145/58; Ht 162.6 cm; Wt 84.8 kg
--- NOTE | 2020-03-10 07:14 | OP ---
PATIENT NAME: LES BRAGG MEDICAL RECORD: [id number] :55 LOCATION:D.OPS ADMISSION DATE: SURGEON: KEILA EDWARD MD DATE OF OPERATION: 02/28/2020 PREOPERATIVE DIAGNOSIS: Right vaginal/vulvar condyloma. POSTOPERATIVE DIAGNOSIS: Right vaginal/vulvar condyloma. PROCEDURE: Ablation of condyloma with electrocautery. SURGEON: Keila Edward MD ANESTHESIA: General endotracheal. INTRAVENOUS FLUIDS: Per anesthesia record. SPECIMENS: None. COMPLICATIONS: None. FINDINGS: Right raised lesion at the epithelium mucosal border of the vulva/vagina approximately 3 x 1 cm in dimension. PROCEDURE IN DETAIL: The patient was taken to the operating room where general anesthesia was achieved without difficulty. The patient was then prepped and draped in normal sterile fashion in the dorsal lithotomy position in the [facility]. At this point, the bladder was drained of approximately 100 cc of clear urine. The Bovie cautery was placed approximately a setting of 20 at which point, the condyloma was excised using electrocautery to the level of the dermis, which was preserved, the entire area was cauterized with good hemostasis noted. The patient tolerated the procedure well, was transported to postanesthesia recovery stable without incident. TRANSINT:[id number] Voice Confirmation ID: [id number] DOCUMENT ID: [id number] KEILA EDWARD MD at 0714 CC: [id number] DICTATION DATE: 03/09/20 0638 PUMP PRESS OPERATOR: 03/09/20 1237 [facility] 02/28/20 [place] [id number]
== END 2020-02-28 11:25 | disposition home or self-care (01) ==
LOC: D.OPS 06:30 → D.PAN 09:15 → D.OPS 10:00 → D.PAN 11:00 → D.OPS 11:25
PROVIDERS: ATTEND Obstetrics & Gynecology
DX: A63.0 Anogenital (venereal) warts (principal); N18.9 Chronic kidney disease, unspecified; F41.9 Anxiety disorder, unspecified; M19.90 Unspecified osteoarthritis, unspecified site

== ENCOUNTER 2020-04-02 08:00 | Outpatient (CLI) | payer BC ==
[~2020-04-02] VITALS: Ht 162.6 cm; Wt 86.2 kg
--- NOTE | 2020-04-02 08:39 | NUR ---
T- 98.1 POX- 96% RR- 16 HR- 67 BP LA-166/74 PT STATES SHE IS IN A LOT OF PAIN AND WAS EXPECTING HER BP TO BE HIGHER THAN NORMAL
[2020-04-02 08:45] LABS: HEMATOCRIT 40.4 % (36.0-48.0); HEMOGLOBIN 13.6 g/dL (12-16); MCH 33.3 pg (26.0-34.0); MCHC 33.7 g/dL (31.0-37.0); MCV 98.8 fL (80.0-100.0); MEAN PLATELET VOLUME 9.4 fL (7.4-10.4); RBC 4.09 10x6/uL (4.00-5.40); RDW 13.9 % (11.5-14.5); WBC 6.5 10x3/uL (4.8-10.8)
[2020-06-03 00:53] VITALS: Ht 162.6 cm; Wt 86.2 kg
== END 2020-04-02 08:01 | disposition home or self-care (01) ==
LOC: D.OPS 08:00 → EDSTATUS 04-03 13:30 → D.PAN 04-03 13:30
PROVIDERS: Anesthesiology; ATTEND Orthopaedic Surgery
DX: M18.12 Unilateral primary osteoarthritis of first carpometacarpal joint, left hand (principal)

== ENCOUNTER 2020-05-01 05:44 | Day surgery (SDC) | payer BC ==
[~2020-05-01] VITALS: Ht 162.6 cm; Wt 86.2 kg
[2020-05-01 07:02] VITALS: BP 143/70; Ht 162.6 cm; Wt 86.2 kg
[2020-05-01] MEDS ORDERED: XANAX1 MG PO (07:25)
[2020-05-01 08:41] LABS: HEMATOCRIT 38.7 % (36.0-48.0); HEMOGLOBIN 12.7 g/dL (12-16); MCH 32.8 pg (26.0-34.0); MCHC 32.8 g/dL (31.0-37.0); MEAN PLATELET VOLUME 10.5 fL (7.4-10.4); RBC 3.87 10x6/uL (4.00-5.40); RDW 14.3 % (11.5-14.5); WBC 5.3 10x3/uL (4.8-10.8)
--- NOTE | 2020-05-01 11:58 | NUR ---
1130 IV D/C'D WITH CANNULA INTACT, PRESSURE HELD AND DRESSING PLACED. DISCHARGE INSTRUCTIONS GIVEN AND SHE VERBALIZED AN UNDERSTANCING. DISCHARGED IN STABLE CONDITION AND WITHOUT C/O
--- NOTE | 2020-05-02 10:46 | OP ---
PATIENT NAME: LES GREEN MEDICAL RECORD: [id number] :55 LOCATION:[facility] ADMISSION DATE: SURGEON: PABLITO LOCKETT DO DATE OF OPERATION: 05/01/2020 PROCEDURE PERFORMED: Left thumb CMC arthroplasty. PREOPERATIVE DIAGNOSIS: Left thumb CMC joint arthritis. POSTOPERATIVE DIAGNOSIS: Left thumb CMC joint arthritis. INDICATIONS: Ms. Green is a 64-year-old female who has had left thumb pain for quite some time. It was getting to the point where she could not move it and was going numb on her. She had had carpal tunnel in the past, does not think it was carpal tunnel, but due to lack of motion and any pain with motion of the thumb, CMC joint, and positive grind test, and we even got an MRI, which showed severe arthritis of that joint. I told her that we do the arthroplasty and it should help her with the pain. She is aware of the risks including damage to the radial sensory nerve, infection, bleeding, damage to other nerves and vessels in the area, continued pain, need for further surgery, failure of implant and she signed the consent. SURGEON: Pablito Lockett DO DESCRIPTION OF PROCEDURE: The patient received block by anesthesia in the preoperative area. She was taken to the operative suite, laid in supine position, given general anesthetic, and LMA was placed. She was given a gram of vancomycin. The left upper extremity was then prepped and draped in sterile fashion. Timeout was performed. Everyone was in agreement with the correct site, side, patient, and procedure. I then made an incision over the radial styloid extending it to the base of the thumb, metacarpal. I then made careful dissection down to the joint, opened up the joint and then made a small incision over the second metacarpal and dissected down to it. I then shot a pin from the second metacarpal down to the base of the metacarpal of the thumb. Once I was in adequate position, I then ran the button through on the FiberWire, I the cut the suture and then put the button on the thumb side, tightened it down to appropriate site and then dressed the trapezium and removed it. Once the trapezium was removed, I readjusted the tightness of the button and the suture and once it was in adequate position, tied that down. I then closed the capsule with 2-0 Vicryl in a simple fashion. Tourniquet was then let down, any bleeding was coagulated with a pickup and a Bovie and also we had a bipolar. The skin was closed by Mckenzie Nj, certified radiology physician assistant. He then closed the thumb part with a 2-0 Vicryl in inverted interrupted fashion and 4-0 Monocryl in the skin and then 4-0 Monocryl in a horizontal mattress fashion over the second metacarpal. This was then dressed with Adaptic, 4 x 4s, cast padding, and a thumb spica splint was placed on the patient. She was then awakened and taken to recovery in stable condition. The tourniquet was inflated and the left upper extremity was exsanguinated with an Esmarch prior to starting to 250 mmHg and tourniquet was inflated for 42 minutes, it was then let down at that time. BLOOD LOSS: Minimal. COMPLICATIONS: None. TRANSINT:[id number] Voice Confirmation ID: [id number] DOCUMENT ID: [id number] OPERATIVE REPORT [id number] LES GREEN MICHAEL D, DO at 1046 CC: [id number] DICTATION DATE: 05/01/20 1335 RECREATION FACILITY MANAGER: 05/01/20 2252 [facility] 05/01/20 [id number] [place] [address]
== END 2020-05-01 11:45 | disposition home or self-care (01) ==
LOC: D.OPS 05:44 → D.PAN 07:45 → D.OPS 10:10
PROVIDERS: Anesthesiology; ATTEND Orthopaedic Surgery
DX: M18.9 Osteoarthritis of first carpometacarpal joint, unspecified (principal)

== ENCOUNTER 2020-05-29 05:30 | Day surgery (SDC) | payer BC ==
[2020-05-26 11:21] LABS: BASOPHILS 0.6 % (0-2); EOSINOPHILS 3.6 % (0-7); HEMATOCRIT 39.4 % (36.0-48.0); HEMOGLOBIN 13.2 g/dL (12-16); IMMATURE GRANULOCYTES 0.1 % (0-5); LYMPHOCYTES 38.5 % (15-50); MCH 33.2 pg (26.0-34.0); MCHC 33.5 g/dL (31.0-37.0); MCV 99.2 fL (80.0-100.0); MEAN PLATELET VOLUME 9.8 fL (7.4-10.4); MONOCYTES 9.4 % (2-11); NEUTROPHILS 47.8 % (40-80); PLATELET COUNT 251 10x3/uL (130-400); RBC 3.97 10x6/uL (4.00-5.40); RDW 13.9 % (11.5-14.5); WBC 6.9 10x3/uL (4.8-10.8)
[2020-05-26 12:03] LABS: APTT 34.2 SECONDS (22.8-39.4); INR 0.96 (0.85-1.17); PROTIME 12.7 SECONDS (11.6-15.0)
[~2020-05-29] VITALS: Ht 162.6 cm; Wt 92.5 kg
[2020-05-29 06:15] VITALS: Ht 162.6 cm; Wt 92.5 kg
--- NOTE | 2020-05-29 06:25 | NUR ---
0630 PT HAS AN IODINE ALLERGY BUT STATES IT IS CONTRAST IODINE ONLY. SHE USED THE NASAL SWABS ON ARRIVAL TO ROOM. PT DENIES ANY ITCHING IN HER NOSE FROM USING THE SWABS, NO SWELLING, NO SNEEZING.
--- NOTE | 2020-05-29 09:26 | NUR ---
PT'S , SISI BRAGG, WILL BE PICKING HER UP AFTER DC. CALLED MR. BRAGG THAT SHE WILL BE READY TO BE PICKED UP AT 1015. HE STATES UNDERSTANDING.
--- NOTE | 2020-05-29 10:01 | NUR ---
DC INSTRUCTIONS GIVEN TO PT. STATES UNDERSTANDING. DC'D IV CATH FULLY INTACT. WILL DC SHORTLY
--- NOTE | 2020-05-29 10:06 | NUR ---
PT LEFT UNIT VIA WC AT 1007
--- NOTE | 2020-06-02 06:51 | OP ---
PATIENT NAME: LES BRAGG MEDICAL RECORD: [id number] :55 LOCATION:[facility] ADMISSION DATE: SURGEON: KEILA EDWARD MD DATE OF OPERATION: 05/29/2020 PREOPERATIVE DIAGNOSIS: History of right valvar dysplasia. POSTOPERATIVE DIAGNOSIS: History of right valvar dysplasia. PROCEDURE: Excision of vulvar lesion. SURGEON: Keila Edward MD ANESTHESIA: General endotracheal. INTRAVENOUS FLUIDS: Per anesthesia record. SPECIMENS: Vulvar lesions. FINDINGS: Well-healed site of right vulva and site of condyloma removal. COMPLICATIONS: None apparent. ESTIMATED BLOOD LOSS: Minimal. PROCEDURE: The patient taken to the operating room where general anesthesia was achieved without any difficulty. The patient was prepped and draped in normal sterile fashion in the dorsal lithotomy position in the [facility]. Following prep and drape, the area of the previous surgery to remove the large flat condyloma was identified and a surgical marking pen was used to define an area surrounding the previous scar and in addition to approximately 3 mm circumferentially around it. This was then used to demarcate the incisional site, made by a 15 blade, which the epidermis was then circumferentially excised. The excised tissue was then lifted up and gently dissected from the dermis using the scalpel. Multiple areas of the bleeding dermis were then cauterized within the Bovie cautery and the skin was reapproximated using 3-0 Vicryl suture. Good hemostasis was noted following the procedure. The patient tolerated procedure well, transferred to postanesthesia recovery stable without incident. TRANSINT:[id number] Voice Confirmation ID: [id number] DOCUMENT ID: [id number] KEILA EDWARD MD at 0651 CC: [id number] DICTATION DATE: 06/01/20 1523 OVERHEAD WORKER: 06/02/20 0138 [facility] 05/29/20 [place] [id number]
== END 2020-05-29 10:07 | disposition home or self-care (01) ==
LOC: D.OPS 05:30 → D.PAN 07:30 → D.OPS 07:30
PROVIDERS: Anesthesiology; ATTEND Obstetrics & Gynecology
DX: Z87.412 Personal history of vulvar dysplasia (principal); D07.1 Carcinoma in situ of vulva

== ENCOUNTER 2020-06-03 00:47 | Emergency (ER) | payer BC ==
[~2020-06-03] VITALS: Ht 162.6 cm; Wt 87.3 kg
[2020-06-03 00:53] VITALS: Ht 162.6 cm; Wt 87.3 kg
[2020-06-03 01:55] LABS: BASOPHILS 0.5 % (0-2); EOSINOPHILS 2.8 % (0-7); HEMATOCRIT 39.6 % (36.0-48.0); HEMOGLOBIN 13.3 g/dL (12-16); IMMATURE GRANULOCYTES 0.2 % (0-5); LYMPHOCYTES 30.8 % (15-50); MCH 33.2 pg (26.0-34.0); MCHC 33.6 g/dL (31.0-37.0); MCV 98.8 fL (80.0-100.0); MEAN PLATELET VOLUME 9.8 fL (7.4-10.4); MONOCYTES 14.3 % (2-11); NEUTROPHILS 51.4 % (40-80); PLATELET COUNT 202 10x3/uL (130-400); RBC 4.01 10x6/uL (4.00-5.40); RDW 13.7 % (11.5-14.5); WBC 6.1 10x3/uL (4.8-10.8)
[2020-06-03 02:02] LABS: ANION GAP 9.4 mmol/L (8-16); CALCIUM 9.2 mg/dL (8.5-10.1); CARBON DIOXIDE 26.4 mmol/L (21.0-32.0); POTASSIUM - SERUM 3.8 mmol/L (3.5-5.1)
[2020-06-03 02:20] LABS: ALBUMIN 3.5 g/dL (3.4-5.0); BILIRUBIN - TOTAL 0.8 mg/dL (0.2-1.3); C-REACTIVE PROTEIN 13.7 mg/dL (0.0-0.9); PROTEIN - SERUM 7.2 g/dL (6.4-8.2)
[2020-06-03 02:34] LABS: NITRITE NEGATIVE (NEGATIVE)
[2020-06-03 02:35] LABS: BILIRUBIN NEGATIVE (NEGATIVE); KETONE NEGATIVE (NEGATIVE); UROBILINOGEN NORMAL mg/dL (< 2)
[2020-06-03 02:36] LABS: BACTERIA FEW /HPF (NONE SEEN); EPITHELIAL CELLS 0-5 /hpf (0-5); WHITE CELLS - URINE 0-5 HPF (0-4)
[2020-06-03 03:13] VITALS: BP 146/80
== END 2020-06-03 03:13 | disposition home or self-care (01) ==
LOC: D.ER 00:47
PROVIDERS: Emergency Medicine
DX: R05 Cough (principal); R50.9 Fever, unspecified; Z20.828 Contact with and (suspected) exposure to other viral communicable diseases

== ENCOUNTER 2020-11-17 17:30 | Outpatient (CLI) | payer MEDICARE, BC ==
[2020-10-30 11:04] VITALS: BMI 34.7
== END 2020-11-17 23:59 | disposition home or self-care (01) ==
LOC: D.MAMMO 17:30
PROVIDERS: ATTEND Family Medicine
DX: Z12.31 Encounter for screening mammogram for malignant neoplasm of breast (principal)

== ENCOUNTER 2021-01-15 05:07 | Day surgery (SDC) | payer MEDICARE, BC ==
[~2021-01-15] VITALS: Ht 162.6 cm; Wt 91.6 kg
[2021-01-15 05:46] LABS: HEMATOCRIT 38.9 % (36.0-48.0); MCH 33.5 pg (26.0-34.0); MCHC 33.4 g/dL (31.0-37.0); MCV 100.3 fL (80.0-100.0); MEAN PLATELET VOLUME 10.5 fL (7.4-10.4); RBC 3.88 10x6/uL (4.00-5.40); WBC 6.9 10x3/uL (4.8-10.8)
[2021-01-15] MEDS ORDERED: LOW DOSE ASPIRI81 M1 PO (06:14)
[2021-01-15 06:17] VITALS: BP 124/65; Ht 162.6 cm; Wt 91.6 kg
--- NOTE | 2021-01-15 15:35 | OP ---
PATIENT NAME: LES GREEN MEDICAL RECORD: [id number] :55 LOCATION[facility] ADMISSION DATE: SURGEON: PABLITO LOCKETT DO DATE OF OPERATION: 01/15/2021 PROCEDURE PERFORMED: Dupuytren's contracture release of the left palm of the hand. PREOPERATIVE DIAGNOSIS: Dupuytren's contracture, left palm. POSTOPERATIVE DIAGNOSIS: Dupuytren's contracture, left palm. INDICATIONS: Ms. Green is a 65-year-old female who has had increasing pain and loss of motion of her left palm and she had several bands and cords noted in her palm. She started to contract down. I informed her of this that we need to do release that in order for her to get motion back, but it has high recurrence rate and also high rate of damage to nerves as well as flexor tendons, need for further surgery, infection and bleeding. She was okay with that and signed the consent. SURGEON: Pablito Lockett DO DESCRIPTION OF PROCEDURE: The patient was taken to the operative suite, laid in supine position, given general anesthetic, given 900 mg of clindamycin preoperatively. She was sedated and LMA was placed. Left upper extremity was then prepped and draped in sterile fashion. A timeout was performed. Everyone was in agreeance with the correct site, side, patient and procedure. I then exsanguinated the left upper extremity with an Esmarch, tourniquet was inflated to 250 mmHg, it was up for 23 minutes. I then made a V type incision on the palm carefully dissecting down through the skin and peeling it back and then removing the bands and the fibrous tissue off of the underlying tissue, be careful to not transect any nerves. Once that was completed, I sent some off for pathology. It was very involved and then large portion of her palm involving essentially from the index all the way over to her ring finger and from the A1 pulleys proximally to the proximal palm. I released all the tissue and removed it. The tourniquet was then let down. Any bleeding was coagulated with a bipolar. I then injected with 0.25% Marcaine with epinephrine in the area. Yoni Crawford, certified financial planner then closed the site with 4-0 nylon in a simple fashion with some horizontal mattresses as well. She was then dressed with a soft dressing, awakened and taken to recovery in stable condition. BLOOD LOSS: Minimal. COMPLICATIONS: None. TRANSINT:[id number] Voice Confirmation ID: [id number] DOCUMENT ID: [id number] OPERATIVE REPORT [id number] LES GREEN MICHAEL D, DO at 1535 CC: [id number] DICTATION DATE: 01/15/21912 SURGICAL PRODUCT SALES CONSULTANT: 01/15/21 1334 [facility] 01/15/[address] [address]
== END 2021-01-15 10:35 | disposition home or self-care (01) ==
LOC: D.OPS 05:07
PROVIDERS: Anesthesiology; ATTEND Orthopaedic Surgery
DX: M72.0 Palmar fascial fibromatosis [Dupuytren] (principal)

== ENCOUNTER 2021-01-24 18:02 | Emergency (ER) | payer MEDICARE, BC ==
[~2021-01-24] VITALS: Ht 162.6 cm; Wt 90.0 kg
[~2021-01-24 18:02] MED LIST changes: +LOW DOSE ASPIRI81 M1 PO
[2021-01-24 18:08] VITALS: Ht 162.6 cm; Wt 90.0 kg
[2021-01-24 18:51] LABS: EOSINOPHILS 3.9 % (0-7); HEMATOCRIT 38.4 % (36.0-48.0); HEMOGLOBIN 12.9 g/dL (12-16); IMMATURE GRANULOCYTES 0.2 % (0-5); LYMPHOCYTE ABS# 2.61 10x3/uL (1.18-3.74); LYMPHOCYTES 44.1 % (15-50); MCH 33.1 pg (26.0-34.0); MCHC 33.6 g/dL (31.0-37.0); MCV 98.5 fL (80.0-100.0); MEAN PLATELET VOLUME 9.7 fL (7.4-10.4); MONOCYTES 9.5 % (2-11); NEUTROPHIL ABS# 2.45 10x3/uL (1.56-6.13); NEUTROPHILS 41.3 % (40-80); PLATELET COUNT 225 10x3/uL (130-400); RDW 13.9 % (11.5-14.5); WBC 5.9 10x3/uL (4.8-10.8)
[2021-01-24 19:05] LABS: ANION GAP 12.9 mmol/L (8-16); CARBON DIOXIDE 26.4 mmol/L (21.0-32.0); POTASSIUM - SERUM 4.3 mmol/L (3.5-5.1)
[2021-01-24 19:11] LABS: ALBUMIN 3.6 g/dL (3.4-5.0); BILIRUBIN - TOTAL 0.27 mg/dL (0.2-1.3); PROTEIN - SERUM 7.3 g/dL (6.4-8.2)
[2021-01-24] MEDS ORDERED: DICLOFENAC SODI50 MG PO (19:29)
[2021-01-24] MEDS ORDERED: CLEOCIN HCL300 MG PO (19:29)
[2021-01-24 20:12] VITALS: BP 144/71
== END 2021-01-24 20:12 | disposition home or self-care (01) ==
LOC: D.ER 18:02
PROVIDERS: Family Medicine
DX: M79.642 Pain in left hand (principal); G89.18 Other acute postprocedural pain